=== PATIENT | male | born 1945 | race Caucasian/White ===

== ENCOUNTER 2020-10-24 22:55 | Inpatient (IN) | payer MEDICARE, SELFPAY ==
--- NOTE | ~2020-10-24 | CT_ITS ---
EXAMINATION: CT abdomen pelvis w con DATE: 10/25/2020 01:24 INDICATION: Abdomen pain TECHNIQUE: Computed tomography (CT) of the abdomen and pelvis was performed with 100 cc Omnipaque 350 intravenous contrast. The dose-length product was 777.05 mGy-cm. Automated exposure control and iter ative reconstruction technique were employed. COMPARISON: CT dated 11/30/2018. FINDINGS: There is a 5-6 mm right UVJ stone with right hydroureteronephrosis there is thickening of t he bladder wall with enlarged prostate gland. There is right lower lobe airspace consolidation, likely chronic atelectasis. Cardiomegaly. Large hia valentín hernia. Cystic lesion of the spleen measures 4.3 x 2.4 cm with peripheral calcifications, possibl y related to prior infection, trauma or infarction. Status post cholecystectomy with biliary dilatati on. There is pneumobilia. There is a possible stone in the common duct. There are low-density lesions in the kidneys, most likely benign cysts. Nonobstructive bowel gas clifton armond. Colonic diverticulosis without evidence for diverticulitis. There screws transfixing the left fe moral neck. Moderate lumbar spondylosis. IMPRESSION: 1. Right UVJ stone measuring 5-6 mm with mild hydronephrosis. 2: Bladder wall thickening with enlarged prostate gland. Cannot exclude cystitis. 3: Possible choledocholithiasis with biliary dilatation. Recommend GI consultation. 4: Large hiatal hernia. 5: Chronic right lower lobe atelectasis. 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 JOINTER OPERATOR IMPRESSION: 1. Right UVJ stone measuring 5-6 mm with mild hydronephrosis. 2: Bladder wall thickening with enlarged prostate gland. Cannot exclude cystit is. 3: Possible choledocholithiasis with biliary dilatation. Recommend GI consultat ion. 4: Large hiatal hernia. 5: Chronic right lower lobe atelectasis.
--- NOTE | ~2020-10-24 | XR_ITS ---
EXAMINATION: XR stent kub - surgery DATE: 10/25/2020 09:34 INDICATION: Right internal ureteral stent placement TECHNIQUE: Fluoroscopic images from a right internal ureteral stent placement are submitted for tavia rodriguez 49 seconds of fluoroscopy time. FINDINGS: There is a right double-J internal ureteral stent projecting in expected position, with proximal [place] loop at the level of the renal pelvis and distal loop in the pelvis within the bladder lumen. IMPRESSION: 1. Right internal ureteral stent placement. Please refer to real-time procedural findings for armando ls. 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 TED CIRCUIT BOARD PANELS TRIMMER IMPRESSION: 1. Right internal ureteral stent placement. Please refer to real-time procedu ral findings for details.
--- NOTE | ~2020-10-24 | XR_ITS ---
EXAMINATION: XR ERCP DATE: 10/26/2020 11:43 INDICATION: Possible choledocholithiasis TECHNIQUE: Three intraoperative fluoroscopic images obtained during endoscopic retrograde cholangiopa ncreatography (ERCP) are submitted for review. Total fluoroscopic time was 61.5 seconds. COMPARISON: CT from 10/25/2020 FINDINGS: There is moderate dilatation of the common bile duct. A right internal ureteral stent is in expected position. Please refer to procedure note for full details. IMPRESSION: 1. Moderate dilatation of the common bile duct. Please refer to the ERCP procedure note for additiona l details. 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 ESTATE ACCOUNTANT IMPRESSION: 1. Moderate dilatation of the common bile duct. Please refer to the ERCP proced ure note for additional details.
[2020-10-24 22:59] VITALS: BP 161/89; PULSE 82; RESP 18; TEMP 35.9; O2SAT 100
--- NOTE | 2020-10-24 23:48 | ED.ABDPAIN ---
HPI - Abdominal Pain General Chief Complaint: Abdominal Pain Stated Complaint: wants to be checked for covid Time Seen by Provider: 10/24/20 23:24 History of Present Illness HPI narrative: Lower abdominal pain and diarrhea since about 1600. Feels like sharp pain. No radiation. He has never had this pain. He has not tried anything for his symptoms. No nausea, vomiting, fever, cough, SOB, CP. Related Data Home Medications Medication Instructions Recorded Confirmed docusate sodium 100 mg tablet 100 mg PO DAILY 10/15/19 hjvlllkvbjrr-Bo-tpub-minerals 18 tablet PO 10/15/19 mg-0.4 mg tablet omega-3 fatty acids 1,000 mg 1,000 mg PO DAILY 10/15/19 capsule omeprazole 40 mg capsule,delayed 40 mg PO BID 10/15/19 release Allergies Allergy/AdvReac Type Severity Reaction Status Date / Time No Known Allergies Allergy Unverified 10/15/19 13:28 Review of Systems Review of Systems: All systems reviewed & are unremarkable except as noted in HPI and below Constitutional: Constitutional: Denies fever(s) and Denies weakness ENT: Denies sore throat Cardiovascular: Cardiovascular: Denies chest pain Respiratory: Respiratory: Denies dyspnea Gastrointestinal: Gastrointestinal: Reports abdominal pain, Reports diarrhea, Denies nausea and Denies vomiting Genitourinary: Genitourinary: Denies dysuria Musculoskeletal: Musculoskeletal: Denies back pain Neurologic: Denies confusion, Denies numbness and Denies weakness [facility] Past Medical History Medical History Jacobo's esophagus with high grade dysplasia Benign essential hypertension Benign prostatic hyperplasia CKD (chronic kidney disease) stage 1, GFR 90 ml/min or greater Hx of iron deficiency Surgical History Surgical History H/O aortic valve replacement History of aortic valve replacement Hx of hernia repair Family History Family History Mother Family history of heart disease in male family member before age 55, Onset Age: 70 Social History Social History Smoking status: Never smoker Alcohol intake: current Exam Const: General: healthy appearing, no acute distress and alert Nutritional Appearance: well nourished Orientation/consciousness: patient oriented x3 HENMT: Head: normal to inspection Resp: Effort & Inspection: normal respiratory effort Auscultation: clear to auscultation bilaterally Cardio: Rate: regular rate Rhythm: regular rhythm GI: Inspection: non-distended GI Palp: Yes Soft to palpation and Yes Tenderness to palpation present (GI) (suprapubic) Skin: General skin exam: normal color Neuro: General: patient oriented x3, moves all extremities, no focal motor deficits and CN's II-XI intact bilaterally Speech: normal speech Gait exam (Neuro): Normal gait present Extrem: General: normal to inspection and no edema Psych: Appearance: grossly normal and well kempt Mental Status: mental status grossly normal Affect: normal affect Attitude: cooperative Course Vital Signs Vital signs: Vital Signs Temperature 35.9 C L 10/24/20 22:59 Pulse Rate 82 10/24/20 22:59 Respiratory Rate 18 10/24/20 22:59 Blood Pressure 161/89 H 10/24/20 22:59 Pulse Oximetry 100 10/24/20 22:59 Temperature 35.9 C L 10/24/20 22:59 Pulse Rate 82 10/24/20 22:59 Respiratory Rate 18 10/24/20 22:59 Blood Pressure 161/89 H 10/24/20 22:59 Pulse Oximetry 100 10/24/20 22:59 MDM - Abdominal Pain MDM Narrative Medical decision making narrative: UA concerning for UTI. CT show 6 mm UVJ stone and choledocholithiasis with stone in CBD. Urology and GI consulted. Differential Diagnosis Differential diagnosis: Likely acute appendicitis, calculus of kidney, constipation, diverticulitis, gastroenteritis, pancreati
[2020-10-24] MEDS: DICYCLOMINE HCL INJ 20 MG/2 ML VIAL IM (23:55)
[2020-10-24] MEDS: LOPERAMIDE HCL 2 MG CAPSULE 4 MG PO (23:55)
[2020-10-25] VITALS (15 sets, daily range): BP systolic 103–182; BP diastolic 51–78; PULSE 62–76; RESP 11–20; TEMP 36.6–37.2; O2SAT 90–100; BMI 25.6
[2020-10-25 00:08] LABS: Add Urine Microscopic? YES; Appearance Urine Clear (Clear); Bilirubin Urine Negative (Negative); Blood Urine 2+ (Negative); Color Urine Yellow (Yellow); Glucose Urine UA Negative (Negative); Ketones Urine Negative (Negative); Leukocyte Esterase Ur 1+ LEU/UL (Negative); Mucus Urine Rare /lpf; Nitrate Urine Negative (Negative); Protein Urine 2+ mg/dL (Negative); Specific Grav Ur 1.016 (1.001-1.035); Urobilinogen Urine Negative mg/dL (<2.0); WBC Urine 31-50 /hpf
[2020-10-25 00:41] LABS: Basophils Absolute Auto 0.1 K/mm3 (0.0-0.1); Basophils Percent Auto 0.5 % (0.2-1.2); Hemoglobin 10.9 g/dL (14.0-18.0); Immature Granulocyte Absolute 0.06 K/mm3 (0.00-0.031); Immature Granulocyte Percent A 0.4 % (0-0.5); Lymphocytes Absolute Auto 1.04 K/mm3 (0.9-3.2); Mean Corpuscular HGB Conc 30.3 g/dl (32-36); Mean Corpuscular Hemoglobin 21.8 pg (26-34); Mean Platelet Volume 10.5 fl (7.4-10.4); Monocytes Absolute Auto 0.8 K/mm3 (0.1-0.6); Neutrophils Percent Auto 87.1 % (45.5-73.1); Platelet Count Result 347 k/mm3 (150-375); Red Cell Distribution Width 20.2 % (11.5-14.5); White Blood Count 14.9 K/mm3 (4.5-10.0)
[2020-10-25 00:54] LABS: Alanine Aminotransferase 17 U/L (4-50); Albumin Level 4.2 g/dL (3.5-5.1); Alkaline Phosphatase 137 U/L (38-126); Anion Gap 10 mmol/L (8-16); Aspartate Amino Transferase 26 U/L (17-59); Blood Urea Nitrogen 29 mg/dL (9-20); Calcium 9.5 mg/dL (8.4-10.2); Carbon Dioxide 25 mmol/L (22-30); Chloride 104 mmol/L (98-107); Estimated Glomerular Filt Rate 39; Glucose 138 mg/dL (75-110); Lipase 112 U/L (23-300); Potassium 4.7 mmol/L (3.4-5.0); Sodium 139 mmol/L (137-145)
[2020-10-25] MEDS: MORPHINE SULFATE (*CRX) 2 MG/ML INJ IV PUSH (01:07)
[2020-10-25] MEDS: MORPHINE SULFATE (*CRX) 4 MG/ML INJ 2 MG IV PUSH ×2 (03:42→06:37)
[2020-10-25] MEDS: ONDANSETRON INJ 4 MG/2 ML VIAL IV PUSH (03:42)
[2020-10-25] MEDS: LACTATED RINGERS 1,000 ML 125 ML IV CONT (04:52)
--- NOTE | 2020-10-25 05:02 | PM.IMHP ---
H&P: HPI History of Present Illness Date/Time: 10/25/20 05:02 Chief complaint: Choledocolithiasis, UTI, Kidney Stone Narrative: This is a pleasant 75 year old male with known history of HTN, bioprosthetic aortic valve replacement, previous nephrolithiasis, BPH, and hyperlipidemia who presented to the hospital [facility] because he believed he might have COVID-19. He felt well until yesterday afternoon when he had diarrhea and diffues lower abdominal pain. Associated symptoms included nausea. He denies any fever, chills, cough, shortness of breath, chest pain, palpitations, dysuria, hematuria, urinary frequency, or rectal bleeding. The patient was evaluated in the ER and found to have acute renal failure on routine labs as well as a grossly abnormal urinalysis. CT abd/pelvis demonstrated a urolithiasis as well as a CBD stone. ER provider has consulted both Urology and Gastroenterology who will evaluate the patient in the morning. He has been started on wide spectrum antibiotics and give IV fluids. Currently his pain is well controlled w/ IV morphine. He has no other complaints. Review of Systems Review of Systems: All systems reviewed & are unremarkable except as noted in HPI and below PMFSH Past Medical History Medical History Jacobo's esophagus with high grade dysplasia Benign essential hypertension Benign prostatic hyperplasia CKD (chronic kidney disease) stage 1, GFR 90 ml/min or greater Hx of iron deficiency Overweight Surgical History Surgical History H/O aortic valve replacement History of aortic valve replacement Hx of hernia repair Family History Family History Mother Family history of heart disease in male family member before age 55, Onset Age: 70 Social History Social History Smoking status: Never smoker Alcohol intake: current Drinks per week: 1 Substance use: never Substance use type: does not use Meds Home Medications and Allergies Home Medications Medication Instructions Recorded Confirmed Type docusate sodium 100 mg tablet 100 mg PO DAILY 10/15/19 10/25/20 History sthfmndmgnsr-Lk-tmqg-minerals 18 1 tablet PO DAILY 10/15/19 10/25/20 History mg-0.4 mg tablet omega-3 fatty acids 1,000 mg 1,000 mg PO DAILY 10/15/19 10/25/20 History capsule omeprazole 40 mg capsule,delayed 40 mg PO BID 10/15/19 10/25/20 History release finasteride 5 mg tablet 5 mg PO DAILY #90 tablet 06/15/20 10/25/20 Rx metoprolol tartrate 25 mg tablet 25 mg PO BID #180 tablet 06/26/20 10/25/20 Rx atorvastatin 40 mg tablet 40 mg PO DAILY #90 tablet 08/14/20 10/25/20 Rx citalopram 20 mg PO DAILY 10/25/20 10/25/20 History Allergies Allergy/AdvReac Type Severity Reaction Status Date / Time No Known Allergies Allergy Verified 10/25/20 04:48 Vital Signs Vital Signs - 24 hr 10/24/20 22:59 10/25/20 04:12 Temperature 35.9 C L 36.6 C Pulse Rate 82 72 Respiratory Rate 18 20 Blood Pressure 161/89 H 182/74 H Pulse Oximetry 100 98 Exam Const: General: cooperative, no acute distress, alert and awake Nutritional Appearance: well nourished Orientation/consciousness: patient oriented x3 HENMT: Head: normal to inspection General nose exam: Normal external nose present Face and sinus: normal facial exam Mouth: Yes Normal oral and palatal mucosa present and Yes oropharynx normal Eyes: Pupils: Equal, round and reactive pupils present EOM: EOMs intact bilaterally Neck: Neck: supple and no JVD Thyroid: thyroid normal Lymphatic: lymphadenopathy not noted Resp: Effort & Inspection: normal respiratory effort Auscultation: clear to auscultation bilaterally Cardio: Rate: regular rate Rhythm: regular rhythm Heart sounds: Clicking heart sound present GI: Inspection: normal to inspecti
--- NOTE | 2020-10-25 05:43 | ADMGEN ---
This patient, Gerry Bains, was admitted to Medical Room 248-01 on 10/25/2020 @0350. Patient/family oriented to hospital policies and general routines including ID bracelet, bed and alarms, visiting hours, pain management, procedures, bathroom and other care routines, personal items, smoking policy, room service/diet, and visiting hours. Information on how to activate the Rapid Response Team has been discussed. Patient/Family are encouraged to report perceived risks to care and to ask questions if they do not understand what they are told or what they should do.
[2020-10-25] MEDS: hydrALAZINE HCL 20 MG/ML VIAL 10 MG IV PUSH (06:35)
--- NOTE | 2020-10-25 07:12 | WPDANESEPP ---
Anes - Eval Pre Procedure Procedure: Cystoscopy Date/Time: 10/25/20 07:12 Surgeon: Lina Preop Diagnosis: uvj stone Pre Op Diagnosis: Choledocolithiasis, UTI, Kidney Stone Patient Data Age: 75 Gender: M Height: 1.88 m Weight: 90.6 kg Last Vital Signs Temp 36.6 C 10/25/20 05:18 Pulse 72 10/25/20 05:18 Resp 20 10/25/20 05:18 BP 182/74 H 10/25/20 05:18 Pulse Ox 98 10/25/20 05:18 Allergies Allergy/AdvReac Type Severity Reaction Status Date / Time No Known Allergies Allergy Verified 10/25/20 04:48 Home Medications Medication Instructions Recorded Confirmed Type docusate sodium 100 mg tablet 100 mg PO DAILY 10/15/19 10/25/20 History etiaiqpnzfyc-Ya-mfdp-minerals 18 1 tablet PO DAILY 10/15/19 10/25/20 History mg-0.4 mg tablet omega-3 fatty acids 1,000 mg 1,000 mg PO DAILY 10/15/19 10/25/20 History capsule omeprazole 40 mg capsule,delayed 40 mg PO BID 10/15/19 10/25/20 History release finasteride 5 mg tablet 5 mg PO DAILY #90 tablet 06/15/20 10/25/20 Rx metoprolol tartrate 25 mg tablet 25 mg PO BID #180 tablet 06/26/20 10/25/20 Rx atorvastatin 40 mg tablet 40 mg PO DAILY #90 tablet 08/14/20 10/25/20 Rx citalopram 20 mg PO DAILY 10/25/20 10/25/20 History Laboratory Tests 10/24/20 10/25/20 10/25/20 23:59 00:24 00:24 WBC 14.9 K/mm3 H K/mm3 (4.5-10.0) RBC 5.00 M/mm3 M/mm3 (4.6-6.20) Hgb 10.9 g/dL L g/dL (14.0-18.0) Hct 36.0 % L % (42.0-52.0) MCV 72.0 fl L fl (80-100) MCH 21.8 pg L pg (26-34) MCHC 30.3 g/dl L g/dl (32-36) RDW 20.2 % H % (11.5-14.5) Plt Count 347 k/mm3 k/mm3 (150-375) MPV 10.5 fl H fl (7.4-10.4) Immature Gran % (Auto) 0.4 % % (0-0.5) Neut % (Auto) 87.1 % H % (45.5-73.1) Lymph % (Auto) 7.0 % L % (18.3-44.2) [place] % (Auto) 5.0 % % (2.6-8.5) Eos % (Auto) 0.0 % % (0-4.4) Baso % (Auto) 0.5 % % (0.2-1.2) Lymph # (Auto) 1.04 K/mm3 K/mm3 (0.9-3.2) [place] # (Auto) 0.8 K/mm3 H K/mm3 (0.1-0.6) Eos # (Auto) 0.0 K/mm3 K/mm3 (0-0.3) Baso # (Auto) 0.1 K/mm3 K/mm3 (0.0-0.1) Abs Immat Gran (auto) 0.06 K/mm3 H K/mm3 (0.00-0.031) Absolute Neuts (auto) 13.0 K/mm3 H K/mm3 (1.3-6.7) Absolute Nucleated RBC 0.0 K/mm3 K/mm3 (0.0-0.012) Nucleated RBC % 0.0 % % (0.0-0.2) Sodium 139 mmol/L mmol/L (137-145) Potassium 4.7 mmol/L mmol/L (3.4-5.0) Chloride 104 mmol/L mmol/L (98-107) Carbon Dioxide 25 mmol/L mmol/L (22-30) Anion Gap 10 mmol/L mmol/L (8-16) BUN 29 mg/dL H mg/dL (9-20) Creatinine 1.70 mg/dL H mg/dL (0.7-1.3) Estim Creat Clear Calc Not Reportable Estimated GFR 39 L (59 - ) Glucose 138 mg/dL H mg/dL (75-110) Calcium 9.5 mg/dL mg/dL (8.4-10.2) Total Bilirubin 1.0 mg/dL mg/dL (0.2-1.3) AST 26 U/L U/L (17-59) ALT 17 U/L U/L (4-50) Alkaline Phosphatase 137 U/L H U/L (38-126) Total Protein 8.0 g/dL g/dL (6.3-8.2) Albumin 4.2 g/dL g/dL (3.5-5.1) Lipase 112 U/L U/L (23-300) Urine Color Yellow (Yellow) Urine Appearance Clear (Clear) Urine pH 5.0 (5.0-9.0) Ur Specific Wyatt 1.016 (1.001-1.035) Urine Protein 2+ mg/dL H mg/dL (Negative) Urine Glucose (UA) Negative mg/dL mg/dL (Negative) Urine Ketones Negative mg/dL mg/dL (Negative) Ur Blood (Man) 2+ H (Negative) Urine Nitrate Negative (Negative) Urine Bilirubin Negative (Negative) Urine Urobilinogen Negative mg/dL mg/dL (<2.0) Leukocyte Esterase Rfl 1+ NICK/UL H NICK/UL (Negative) Urine RBC 6-10 /hpf H /hpf
--- NOTE | 2020-10-25 08:11 | WPDURCON ---
Assessment and Plan Assessment and plan (1) Ureteral calculus, right: Code(s): N20.1 - Calculus of ureter Status: Acute Assessment and Plan: 75 yo male with elevated Cr, distal right ureter stone with hydronephrosis #1 ureter stone plan on cystoscopy with RPG, stent placement possible URS with laser lithotripsy and stone manipulation given it is right at UVJ. the risks, benefits, alternatives, nature of procedure and complications were reviewed. Risks including but not limited to bleeding, infection, inability to treat stone, need for multiple procedures, scar tissue formation, damage to the urinary tract, the side effects and temporary nature of the stent were emphasized including irritative voiding symptoms, pain, and hematuria. pt understands stents are temporary and need removal. In addition anesthesia and positioning complications were reviewed, risk of FL, stroke, DVT, PE, disability and other unforeseen complications were reviewed , pt verbalized understanding,,all ? answered to pt satisfaction in layman's terms. Urology Consult Note HPI Date Seen: 10/25/20 Requesting Physician: Tacos Gonzalez MD Primary Care Provider: Srikanth Abbasi DO Consult Narrative Narrative: Gerry Bains is a 75 year old male with significant pmhx of kidney stones, and artificial heart valve who presented to the ED with diarrhea and abdominal pain. he denies any hematuria, dysuria, fever or chills. Pain is lower , crampy and diffuse. Pain improved with IV narcotics. No recent illnesses. he has had prior ESWL and usually sees Dr Hercules. Pain began yesterday acutely, it is not colicky. He had a CT A/P with IV contrast which shows a distal 6 mm stone with hydro. Review of Systems Review of Systems: All systems reviewed & are unremarkable except as noted in HPI and below Constitutional: Constitutional: Denies anorexia, Denies body ache(s), Denies chills, Denies fever(s) and Denies lethargy Eyes: Eyes: Reports as per HPI and Denies change in vision ENT: Reports system reviewed and no additional complaints, except as documented, Denies headache(s) and Denies nasal discharge Cardiovascular: Cardiovascular: Reports as per HPI and Reports no additional cardiovascular complaints Respiratory: Respiratory: Reports as per HPI, Reports no additional respiratory complaints and Reports no additional respiratory complaints Gastrointestinal: Gastrointestinal: Reports abdominal pain, Reports diarrhea and Denies vomiting Genitourinary: Genitourinary: Reports no additional male genitourinary complaints, Reports as per HPI, Denies dysuria and Denies flank pain Musculoskeletal: Musculoskeletal: Reports no additional musculoskeletal complaints, Reports as per HPI, Denies back pain and Denies arthralgias Integumentary/Breasts: Skin/Breast: Reports system reviewed and no additional complaints, except as docu and Denies change in pigmentation Neurologic: Reports system reviewed and no additional complaints, except as documented, Reports as per HPI, Denies abnormal gait and Denies focal weakness Psychiatric: Psychiatric: Reports no additional psychiatric complaints Endocrine: Endocrine: Reports no additional endocrine complaints Hematologic/Lymphatic: Hematologic/Lymphatic: Reports no additional hematologic/lymphatic complaints and Denies easy bruising Allergic/Immunologic: Allergic/Immunologic: Reports no additional allergic/immunologic complaints PMFSH Past Medical History Medical History (Updated 10/25/20 @ 07:15 by Ellen Esquivel CRNA) Jacobo's esophagus with high grade dysplasia Benign essential hypertension Benign prostatic hyperplasia CKD (chronic kidney disease) stage 1, GFR 90 ml/min or greater Hx of iron deficiency Overweight Surgical History Surgical History H/O aortic valve replacement History of aortic valve replacement Hx of hernia repair Family History Fam
[2020-10-25 08:21] LABS: Basophils Absolute Auto 0.1 K/mm3 (0.0-0.1); Basophils Percent Auto 0.3 % (0.2-1.2); Eosinophils Percent Auto 0.1 % (0-4.4); Hematocrit 35.3 % (42.0-52.0); Hemoglobin 10.7 g/dL (14.0-18.0); Immature Granulocyte Absolute 0.06 K/mm3 (0.00-0.031); Immature Granulocyte Percent A 0.4 % (0-0.5); Lymphocytes Absolute Auto 2.04 K/mm3 (0.9-3.2); Lymphocytes Percent Auto 12.9 % (18.3-44.2); Mean Corpuscular HGB Conc 30.3 g/dl (32-36); Mean Corpuscular Hemoglobin 21.3 pg (26-34); Mean Corpuscular Volume 70.3 fl (80-100); Mean Platelet Volume 9.7 fl (7.4-10.4); Monocytes Absolute Auto 1.3 K/mm3 (0.1-0.6); Monocytes Percent Auto 8.5 % (2.6-8.5); Neutrophils Absolute Auto 12.3 K/mm3 (1.3-6.7); Neutrophils Percent Auto 77.8 % (45.5-73.1); Platelet Count Result 352 k/mm3 (150-375); Red Blood Count 5.02 M/mm3 (4.6-6.20); Red Cell Distribution Width 20.2 % (11.5-14.5); White Blood Count 15.8 K/mm3 (4.5-10.0)
[2020-10-25 08:30] LABS: Anion Gap 6 mmol/L (8-16); Blood Urea Nitrogen 27 mg/dL (9-20); Calcium 9.4 mg/dL (8.4-10.2); Carbon Dioxide 28 mmol/L (22-30); Chloride 104 mmol/L (98-107); Estimated CRCL calculation 39 ml/min; Estimated Glomerular Filt Rate 39; Glucose 106 mg/dL (75-110); Magnesium 1.7 mg/dL (1.6-2.3); Potassium 4.4 mmol/L (3.4-5.0); Sodium 138 mmol/L (137-145)
[2020-10-25] MEDS: METOPROLOL TARTRATE 25 MG TABLET PO ×2 (08:35→23:09)
--- NOTE | 2020-10-25 08:47 | WPDANESEFPP ---
Anes - Eval Final PreProcedure Day of Procedure 10/25/20 08:47 Patient weight: normal Heart: regular rate and rhythm and murmur Lungs: clear to auscultation Airway: Mallampati scale class II Neurological: other (alert) Last oral intake: >/= 8 hours ASA classification: III Emergent: yes Anesthetic plan: proceed Anesthesia type and monitoring: general LMA and standard monitoring Informed Consent: The patient's anesthetic plan and its attendant risks and benefits were discussed with the patient/family/POA. Questions were solicited and answers provided to the satisfaction of the patient/family/POA.
--- NOTE | 2020-10-25 08:49 | PC.NURSE ---
Patient transported to surgery at 0845
--- NOTE | 2020-10-25 09:24 | PM.PROC ---
Procedure Note - Detailed Date of procedure: 10/25/20 Pre-op diagnosis: Choledocolithiasis, UTI, Kidney Stone Surgeon: David Pace MD Preoperative Diagnosis: right ureter stone, hydronephrosis Post operative diagnosis: same Procedure: cystoscopy right ureteroscopy with holmium laser lithotripsy, stone manipulation with basket extraction of stone fragments,right ureter stent placement Implants: right 6 Fr variable length stent Specimens: Stone for analysis, right renal pelvis urine for culture Description of procedure: Pt was brought back to the operating room, he received general anesthesia via LMA. he was prepped in standard fashion in the dorsal lithotomy position with Betadine scrub to the genitalia. Care was taken to pad all extremities, care was taken to not hyper flex or hyperextend any extremity. SCD's were on for DVT prophylaxis. He is on Zosyn. After appropriate time out and patient identifiers were use, 22 Fr cystoscope was inserted into the bladder , prostate had lateral lobe hyperplasia and small middle lobe. No tumors, lesions, masses or stones seen. He had bilateral orthotopic ureteral orifices, stone seen on fluoro at UVJ. 5 Fr Angiocath and glide wire were placed past the stone. He had delayed nephrogram from CT. Bentson wire was placed. urine was clear from renal pelvis and was sent for culture. 8/10 dilator was used over Bentson wire to dilate the UVJ. 7 Fr semirigid ureteroscope was inserted up to the level of t he stone, I attempted to remove it but it would not pass the UVJ. Stone was then ablated with the holmium laser into small fragments with at 270 micron fiber at setting of 0.8 and 5 Hz. Stones were removed with escape basket and sent for stone analysis. 6 Fr variable length stent was placed over Bentson wire, good curl was seen fluoroscopically in the kidney and both fluoroscopically and endoscopically in the bladder. The bladder was drained all instruments and wires removed. Patient was awoken and transferred to recovery in stable condition. No immediate complications, no family to speak with.
[2020-10-25] MEDS: LACTATED RINGERS 1,000 ML 30 ML IV CONT (09:29)
--- NOTE | 2020-10-25 09:53 | SUR.PHASEI ---
[id number] sbar faxed floor notified
[2020-10-25] MEDS: OMEGA 3 POLYUNSAT FATTY ACIDS 1 GM CAP PO (10:40)
[2020-10-25] MEDS: PANTOPRAZOLE 40 MG TABLET PO (10:40)
[2020-10-25] MEDS: FINASTERIDE 5 MG TABLET PO (10:41)
[2020-10-25] MEDS: THERAPEUTIC MULTIVITAMINS/MINERALS TAB (*BKC) 1 TABLET PO (10:41)
[2020-10-25] MEDS: CITALOPRAM HYDROBROMIDE 20 MG TABLET PO (10:41)
[2020-10-25] MEDS: ATORVASTATIN 40 MG TABLET PO (10:41)
--- NOTE | 2020-10-25 11:33 | WPDGIPROGNO ---
Progress Note: A&P Additional Plan GI Dmitry for Tab Mccarthy GERD and Jacobo's with HGD - s/p RFA - PPI BID - EGD with surveilance bx per Dr. Tab Carroll. Personal h/o colon polyps 5 years ago: consider repeat colon by Dr. white as OP C. Abdominal pain, N: - Likely r/t kidney stone - r/w cysto D. Abnormal imaging-digestive: HH; observe. E. Abnormal imaging-biliary: - Concern for CBD stone on CT - Favor ERCP when stable (preop ABx for heart valve) F. LILIANA with microcytosis: - No active blood loss - Please order B12, folate, ferritin, iron panel, TTg, Epo level; Hgb electrophoresis Further recs per Dr. White. Full note dictated. Theodore [facility] [phone] #[id number] Subjective Date/time seen: 10/25/20 11:33 Objective Data Vital Signs Vital Signs: Vital Signs - 24 hr 10/24/20 22:59 10/25/20 04:12 10/25/20 05:18 Temperature 35.9 C L 36.6 C 36.6 C Pulse Rate 82 72 72 Respiratory Rate 18 20 20 Blood Pressure 161/89 H 182/74 H 182/74 H Pulse Oximetry 100 98 98 10/25/20 08:35 10/25/20 09:30 10/25/20 09:45 Temperature 36.8 C Pulse Rate 76 62 63 Respiratory Rate 11 L 15 Blood Pressure 129/64 119/63 Pulse Oximetry 100 96 10/25/20 10:00 10/25/20 10:15 Temperature Pulse Rate 63 63 Respiratory Rate 16 16 Blood Pressure 116/65 118/53 L Pulse Oximetry 95 95 Intake/Output Intake/Output: Intake & Output 10/22/20 10/23/20 10/24/20 10/25/20 23:59 23:59 23:59 23:59 Intake Total 700 Output Total 225 Balance 475 Meds/Results Medications: Active Medications Generic Name Dose Route Start Last Admin Trade Name Freq PRN Reason Stop Dose Admin Acetaminophen 650 mg 10/25/20 05:00 Acetaminophen 325 Mg Tablet PO Q4H PRN Mild Pain (1-3) or Fever Atorvastatin Calcium 40 mg 10/25/20 09:00 10/25/20 10:41 Atorvastatin 40 Mg Tablet PO 40 mg DAILY AUDREY Administration Citalopram Hydrobromide 20 mg 10/25/20 09:00 10/25/20 10:41 Citalopram Hydrobromide 20 Mg Tablet PO 20 mg DAILY AUDREY Administration Finasteride 5 mg 10/25/20 09:00 10/25/20 10:41 Finasteride 5 Mg Tablet PO 5 mg DAILY AUDREY Administration Fish Oil 1 gm 10/25/20 09:00 10/25/20 10:40 [place] 3 Polyunsat Fatty Acids 1 Gm Cap PO 1 gm DAILY AUDREY Administration Hydralazine HCl 10 mg 10/25/20 04:57 10/25/20 06:35 Hydralazine Hcl 20 Mg/Ml Vial IV PUSH 10/27/20 07:00 10 mg Q8H PRN Administration see comment Piperacillin/Tazobactam/Dextrose 3.375 gm in 50 mls @ 100 mls/hr 10/25/20 10:00 10/25/20 11:15 Zosyn 3.375 Gm/D5w 50ml Pm IVPB Infused Q6H AUDREY Infusion Lactated Ringer's 1,000 mls @ 125 mls/hr 10/25/20 03:05 10/25/20 11:25 Lr - Lactated Ringers Iv IV CONT Not Given .Q8H AUDREY Metoprolol Tartrate 25 mg 10/25/20 09:00 10/25/20 08:35 Metoprolol Tartrate 25 Mg Tablet PO 25 mg Q12HR AUDREY Administration Morphine Sulfate 2 mg 10/25/20 07:31 Morphine Sulfate (*Crx) 4 Mg/Ml Inj IV PUSH Q4H PRN Pain Rated 7-10 Multivitamins/Calcium 1 tablet 10/25/20 09:00 10/25/20 10:41 Therapeutic Multivitamins/Minerals Tab (*Bkc) PO 1 tablet DAILY AUDREY Administration Ondansetron HCl 4 mg 10/25/20 03:01 10/25/20 03:42 Ondansetron Inj 4 Mg/2 Ml Vial IV PUSH 4 mg Q4H PRN Administration Nausea Pantoprazole Sodium 40 mg 10/25/20 09:00 10/25/20 10:40 Pantoprazole 40 Mg Tablet PO 40 mg QAM AUDREY Administration Radiology Results: ITS Impressions Abdomen/Pelvis CT 10/25/20 08:31 IMPRESSION: 1. Right UVJ stone measuring 5-6 mm with mild hydronephrosis. 2: Bladder wall thickening with enlarged prostate gland. Cannot exclude cystitis. 3: Possible choledocholithiasis with biliary dilatation. Recommend GI consultation. 4: Large hiatal hernia. 5: Chronic right lower lobe atelectasis. Ureter Stent X-Ray 10/25/20 09:39 IMPRESSION: 1. Right internal ureteral stent placement. Please refer to real-time proce
--- NOTE | 2020-10-25 13:26 | PM.IMPN ---
Progress Note: A&P Assessment and Plan (1) Ureteral calculus, right: Code(s): N20.1 - Calculus of ureter Status: Acute Assessment and Plan: Patient presented with abdominal pain; CT demonstrated 6mm at right UVJ with mild hydronephrosis. Urology following - appreciate recommendations. Underwent right ureteral stent placement, laser lithotripsy and extraction of stone fragments this morning by Dr. Pace. (2) Complicated UTI (urinary tract infection): Code(s): N39.0 - Urinary tract infection, site not specified Status: Acute Assessment and Plan: Urinalysis grossly abnormal. Continue empiric IV Zosyn (day 1), urine culture pending. (3) Acute renal failure: Qualifiers: Acute renal failure type: unspecified Qualified Code(s): N17.9 - Acute kidney failure, unspecified Code(s): N17.9 - Acute kidney failure, unspecified Status: Acute Assessment and Plan: Suspect secondary to above. Continue IV hydration, slowed rate. Avoid nephrotoxic agents. Monitor renal function and urine output. (4) Choledocholithiasis: Code(s): K80.50 - Calculus of bile duct without cholangitis or cholecystitis without obstruction Status: Acute Assessment and Plan: Incidentally found on CT abd/pelvis. Gastroenterology has been consulted by ER provider. Appreciate GI recommendations. Will allow patient to have clear liquid diet for the rest of today, NPO at midnight in case GI wants possible ERCP tomorrow. Reassess in AM. (5) Leukocytosis: Qualifiers: Leukocytosis type: unspecified Qualified Code(s): D72.829 - Elevated white blood cell count, unspecified Code(s): D72.829 - Elevated white blood cell count, unspecified Status: Acute Assessment and Plan: Suspect secondary to acute UTI. Continue antibiotics as above and monitor CBCd. (6) Benign essential hypertension: Code(s): I10 - Essential (primary) hypertension Status: Chronic Assessment and Plan: Reasonably controlled maintained on his home metoprolol. Monitor BP. (7) Benign prostatic hyperplasia: Qualifiers: Lower urinary tract symptom presence: unspecified whether lower urinary tract symptoms present Qualified Code(s): N40.0 - Benign prostatic hyperplasia without lower urinary tract symptoms Code(s): N40.0 - Benign prostatic hyperplasia without lower urinary tract symptoms Status: Chronic Assessment and Plan: Continue finasteride. (8) History of aortic valve replacement: Code(s): Z95.2 - Presence of prosthetic heart valve Status: Chronic Subjective Date/time seen: 10/25/20 1245 Interval history: Mr. Bains is a pleasant 75yo M admitted for kidney stone, UTI, and also choledocholithiasis. He is seen in follow up this afternoon after returning from ureteral stent placement this morning. He is in good spirits and feels well, notes his abdominal pain is improved. He denies chest pain or shortness of breath. He has not yet eaten but denies nausea or vomiting. Review of Systems Review of Systems: All systems reviewed & are unremarkable except as noted in HPI and below Exam Narrative: Exam Narrative: General: Male resting comfortably supine in bed in no acute distress. HEENT: Normocephalic, EOMI, oral mucosa moist. Cardiovascular: Rate and rhythm are regular. Soft systolic murmur heard loudest over left sternal border. Respiratory: Lungs clear to auscultation bilaterally. Respirations even and non-labored. Tolerating room air. Abdomen: Soft, non-distended, bowel sounds present. Mild tenderness to palpation of
--- NOTE | 2020-10-25 16:05 | CONS_ITS ---
DATE OF CONSULTATION: 10/25/2020 HISTORY OF PRESENT ILLNESS: This is a 75-year-old male with history of hypertension, bioprosthetic aortic valve replacement, kidney stones, chronic kidney disease, iron deficiency anemia, BPH, hypertension, hyperlipidemia, Jacobo esophagus with high-grade dysplasia, status post treatment with radiofrequency ablation in the past, hernia repair, who I am now asked to provide GI evaluation at the request of the hospitalist service for abdominal pain and abnormal imaging of the biliary system. PRIMARY CARE PROVIDER: Dr. Srikanth Abbasi. PRIMARY HEALTH PROMOTER: Gerry Martinez MD, who is now retired. Patient presented with bilateral lower quadrant abdominal pain beginning at 4 p.m. yesterday. It was associated with mild nausea and no vomiting. It is now resolved after cystoscopy. The patient has chronic heartburn relieved with omeprazole. He otherwise denies trouble swallowing, loss of appetite or weight, diarrhea, constipation, hematochezia, melena, fever, jaundice, scleral icterus, dark urine, light stools, itching, hot or cold intolerance, chest pain, shortness of breath at rest, hematuria, dysuria, new cough or visual changes, easy bruising, tingling of the skin, bone pain, or tremors. ENDOCARDITIS RISK FACTORS: Positive for bioprosthetic valve. No endocarditis, bleeding disorder, joint replacement. ALLERGIES: NO KNOWN DRUG ALLERGIES. MEDICATIONS: Include Colace, multivitamin, fish oil, omeprazole 40 mg twice a day, finasteride, metoprolol, atorvastatin, citalopram. SOCIAL HISTORY: Nonsmoker, nondrinker. FAMILY HISTORY: Negative for GI malignancy. The patient states his last colonoscopy was approximately 5 years ago with colon polyps. PHYSICAL EXAM: GENERAL: Well-developed, well-nourished male, lying in bed, no apparent distress, status post cystoscopy. He has no lower extremity edema, jaundice, spider angioma, or palmar erythema. HEENT: Skull is normocephalic, atraumatic. Pupils nonicteric. Oropharynx clear. NECK: Supple without thyromegaly. LUNGS: Clear to auscultation. HEART: Rate and rhythm regular. S1, S2 normal. ABDOMEN: Normoactive bowel sounds. Soft, nontender, nonrigid, nondistended without hepatosplenomegaly or masses. RECTAL: Deferred. NEURO: Conscious, alert and oriented x3. LABORATORY DATA: Today, hemoglobin 11, hematocrit 35, white count is 16, MCV 70, platelets are 352. Creatinine 1.7, T bilirubin 1, alkaline phosphatase 137, AST 26, ALT is 17. On 10/24, CT scan of the abdomen and pelvis shows right UVJ stone. Bladder wall thickening and probable CBD stone with biliary dilation. Hiatal hernia. ASSESSMENT/PLAN: 1. Gastroesophageal reflux disease and Jacobo's with high-grade dysplasia. We will continue omeprazole twice daily and patient will follow up with Dr. Quinton Barth for consideration of surveillance upper endoscopy with biopsy. 2. Iron deficiency anemia in patient with renal disease. We will check labs including B12, folate, ferritin, reticulocyte count, and iron panel. Would also check erythropoietin level. 3. Abnormal imaging digestive with hiatal hernia. We will observe. 4. Personal history of colon polyps. Consider repeat colonoscopy when stable per Dr. Quinton Barth. 5. Abdominal pain and nausea, most likely due to kidney stone, now resolved with cystoscopy. We will observe. 6. Abnormal imaging, biliary and abnormal alkaline phosphatase, possibly due to common duct stone. CT suggests common duct stone. Could proceed with either ERCP or MRCP. Given the pretest probability, I would be concerned about false-negative on MRCP and would generally lean to ERCP prior to discharge. Continue antibiotics. The patient will need preprocedure antibiotics given his hear
[2020-10-25] MEDS: LACTATED RINGERS 1,000 ML 75 ML IV CONT (16:52)
[2020-10-26] VITALS (16 sets, daily range): BP systolic 109–169; BP diastolic 48–79; PULSE 62–73; RESP 14–24; TEMP 36.8–37.1; O2SAT 95–100
[2020-10-26 05:39] LABS: Basophils Absolute Auto 0.1 K/mm3 (0.0-0.1); Basophils Percent Auto 0.4 % (0.2-1.2); Eosinophils Percent Auto 0.2 % (0-4.4); Hemoglobin 9.5 g/dL (14.0-18.0); Immature Granulocyte Absolute 0.06 K/mm3 (0.00-0.031); Immature Granulocyte Percent A 0.4 % (0-0.5); Lymphocytes Absolute Auto 1.62 K/mm3 (0.9-3.2); Lymphocytes Percent Auto 12.1 % (18.3-44.2); Mean Corpuscular HGB Conc 30.6 g/dl (32-36); Mean Corpuscular Hemoglobin 21.8 pg (26-34); Mean Corpuscular Volume 71.3 fl (80-100); Monocytes Absolute Auto 1.1 K/mm3 (0.1-0.6); Monocytes Percent Auto 8.5 % (2.6-8.5); Neutrophils Absolute Auto 10.5 K/mm3 (1.3-6.7); Neutrophils Percent Auto 78.4 % (45.5-73.1); Platelet Count Result 296 k/mm3 (150-375); Red Blood Count 4.35 M/mm3 (4.6-6.20); Red Cell Distribution Width 19.7 % (11.5-14.5); White Blood Count 13.4 K/mm3 (4.5-10.0)
[2020-10-26 05:54] LABS: Anion Gap 4 mmol/L (8-16); Blood Urea Nitrogen 25 mg/dL (9-20); Calcium 9.1 mg/dL (8.4-10.2); Carbon Dioxide 32 mmol/L (22-30); Chloride 103 mmol/L (98-107); Estimated CRCL calculation 41 ml/min; Estimated Glomerular Filt Rate 42; Glucose 92 mg/dL (75-110); Magnesium 1.8 mg/dL (1.6-2.3); Sodium 139 mmol/L (137-145)
[2020-10-26 06:05] LABS: Iron 184 ug/dL (49-181)
[2020-10-26 06:15] LABS: Percent Iron Saturation 59 % (20-50)
--- NOTE | 2020-10-26 06:15 | WPDUROPN2 ---
Progress Note: A&P Assessment and Plan (1) Ureteral calculus, right: Code(s): N20.1 - Calculus of ureter Status: Acute Assessment and Plan: Comfortable/tolerating stent, leukocytosis and renal function slowly improving. Urine culture pending. GI study planned for today. Subjective Subjective Date/Time Seen: 10/26/20 06:15 Comfortable, no complaints Review of Systems Cardiovascular: Cardiovascular: Denies chest pain, Denies lightheadedness, Denies palpitations and Denies dyspnea Respiratory: Respiratory: Denies dyspnea Gastrointestinal: Gastrointestinal: Denies diarrhea, Denies nausea and Denies vomiting Genitourinary: Genitourinary: Denies hematuria and Denies dysuria Endocrine: Endocrine: Denies palpitations Exam Const: General: no acute distress Resp: Effort & Inspection: normal respiratory effort GI: Inspection: non-distended GI Palp: No abdominal tenderness and No Guarding due to palpation present (GI) Auscultation: normal bowel sounds Objective Data Vital Signs Vital Signs: Vital Signs - 24 hr 10/25/20 08:35 10/25/20 09:30 10/25/20 09:45 Temperature 98.2 F Pulse Rate 76 62 63 Respiratory Rate 11 L 15 Blood Pressure 129/64 119/63 Pulse Oximetry 100 96 10/25/20 10:00 10/25/20 10:15 10/25/20 10:30 Temperature 98.4 F Pulse Rate 63 63 64 Respiratory Rate 16 16 18 Blood Pressure 116/65 118/53 L 138/62 Pulse Oximetry 95 95 95 10/25/20 10:45 10/25/20 11:15 10/25/20 12:15 Temperature 98.5 F 98.9 F 98.6 F Pulse Rate 65 66 66 Respiratory Rate 18 18 18 Blood Pressure 120/51 L 141/57 H 145/67 H Pulse Oximetry 95 96 90 10/25/20 18:00 10/25/20 22:00 10/25/20 23:09 Temperature 98.3 F 98.5 F Pulse Rate 68 65 70 Respiratory Rate 18 20 Blood Pressure 103/78 126/61 Pulse Oximetry 94 97 10/26/20 02:00 10/26/20 05:51 Temperature 98.3 F 98.2 F Pulse Rate 62 62 Respiratory Rate 20 20 Blood Pressure 110/48 L 109/51 L Pulse Oximetry 98 98 Intake/Output Intake/Output: Intake & Output 12/04/20 12/05/20 12/06/20 12/07/20 23:59 23:59 23:59 23:59 Intake Total 1600 120 Output Total 675 200 Balance 925 -80 Meds/Results Medications: Active Medications Generic Name Dose Route Start Last Admin Trade Name Freq PRN Reason Stop Dose Admin Acetaminophen 650 mg 10/25/20 05:00 Acetaminophen 325 Mg Tablet PO Q4H PRN Mild Pain (1-3) or Fever Atorvastatin Calcium 40 mg 10/25/20 09:00 10/25/20 10:41 Atorvastatin 40 Mg Tablet PO 40 mg DAILY AUDREY Administration Citalopram Hydrobromide 20 mg 10/25/20 09:00 10/25/20 10:41 Citalopram Hydrobromide 20 Mg Tablet PO 20 mg DAILY AUDREY Administration Finasteride 5 mg 10/25/20 09:00 10/25/20 10:41 Finasteride 5 Mg Tablet PO 5 mg DAILY AUDREY Administration Fish Oil 1 gm 10/25/20 09:00 10/25/20 10:40 [place] 3 Polyunsat Fatty Acids 1 Gm Cap PO 1 gm DAILY AUDREY Administration Hydralazine HCl 10 mg 10/25/20 04:57 10/25/20 06:35 Hydralazine Hcl 20 Mg/Ml Vial IV PUSH 10/27/20 07:00 10 mg Q8H PRN Administration see comment Piperacillin/Tazobactam/Dextrose 3.375 gm in 50 mls @ 100 mls/hr 10/25/20 10:00 10/26/20 05:12 Zosyn 3.375 Gm/D5w 50ml Pm IVPB 100 mls/hr Q6H AUDREY Administration Lactated Ringer's 1,000 mls @ 75 mls/hr 10/25/20 03:05 10/25/20 16:52 Lr - Lactated Ringers Iv IV CONT 75 mls/hr .[id number] AUDREY Administration Metoprolol Tartrate 25 mg 10/25/20 09:00 10/25/20 23:09 Metoprolol Tartrate 25 Mg Tablet PO 25 mg Q12HR AUDREY Administration Morphine Sulfate 2 mg 10/25/20 07:31 Morphine Sulfate (*Crx) 4 Mg/Ml Inj IV PUSH Q4H PRN Pain Rated 7-10 Multivitamins/Calcium 1 tablet 10/25/20 09:00 10/25/20 10:41 Therapeutic Multivitamins/Minerals Tab (*Bkc) PO 1 tablet DAILY AUDREY Administration Ondansetron HCl 4 mg 10/25/20 03:01 10/25/20 03:42 Ondansetron Inj 4 Mg/2 Ml Vial IV PUSH
[2020-10-26 06:57] LABS: Folic Acid 10.4 ng/mL (2.76->20)
--- NOTE | 2020-10-26 08:03 | WPDANESEPPF ---
Anes - Initial Pre Proc Eval Procedure: Operation Date: 10/25/20 08:30 Proposed Procedures p Cystoscopy, Right Ureteral Stent Placement(Right) - David Pace MD s Possible Holmium Laser Procedure(Right) - David Pace MD Operation Date: 10/26/20 11:00 Proposed Procedures p Endoscopic Retro Cholangiopancreatogram - Quinton Barth MD Date/Time: 10/26/20 08:03 Surgeon: UBALDO Ortez Pre Op Diagnosis: Choledocolithiasis, UTI, Kidney Stone Patient Data Age: 75 Gender: M Height: 1.88 m Weight: 90.6 kg Last Vital Signs Temp 36.8 C 10/26/20 05:51 Pulse 62 10/26/20 05:51 Resp 20 10/26/20 05:51 BP 109/51 L 10/26/20 05:51 Pulse Ox 98 10/26/20 05:51 Allergies Allergy/AdvReac Type Severity Reaction Status Date / Time No Known Allergies Allergy Verified 10/26/20 10:13 Home Medications Medication Instructions Recorded Confirmed Type docusate sodium 100 mg tablet 100 mg PO DAILY 10/15/19 10/25/20 History veenukpygntf-Uy-ghnz-minerals 18 1 tablet PO DAILY 10/15/19 10/25/20 History mg-0.4 mg tablet omega-3 fatty acids 1,000 mg 1,000 mg PO DAILY 10/15/19 10/25/20 History capsule omeprazole 40 mg capsule,delayed 40 mg PO BID 10/15/19 10/25/20 History release finasteride 5 mg tablet 5 mg PO DAILY #90 tablet 06/15/20 10/25/20 Rx metoprolol tartrate 25 mg tablet 25 mg PO BID #180 tablet 06/26/20 10/25/20 Rx atorvastatin 40 mg tablet 40 mg PO DAILY #90 tablet 08/14/20 10/25/20 Rx citalopram 20 mg PO DAILY 10/25/20 10/25/20 History Laboratory Tests 10/25/20 10/25/20 10/26/20 08:12 08:12 05:13 WBC 15.8 K/mm3 H K/mm3 13.4 K/mm3 H K/mm3 (4.5-10.0) (4.5-10.0) RBC 5.02 M/mm3 M/mm3 4.35 M/mm3 L M/mm3 (4.6-6.20) (4.6-6.20) Hgb 10.7 g/dL L g/dL 9.5 g/dL L g/dL (14.0-18.0) (14.0-18.0) Hct 35.3 % L % 31.0 % L % (42.0-52.0) (42.0-52.0) MCV 70.3 fl L fl 71.3 fl L fl (80-100) (80-100) MCH 21.3 pg L pg 21.8 pg L pg (26-34) (26-34) MCHC 30.3 g/dl L g/dl 30.6 g/dl L g/dl (32-36) (32-36) RDW 20.2 % H % 19.7 % H % (11.5-14.5) (11.5-14.5) Plt Count 352 k/mm3 k/mm3 296 k/mm3 k/mm3 (150-375) (150-375) MPV 9.7 fl fl 10.0 fl fl (7.4-10.4) (7.4-10.4) Immature Gran % (Auto) 0.4 % % 0.4 % % (0-0.5) (0-0.5) Neut % (Auto) 77.8 % H % 78.4 % H % (45.5-73.1) (45.5-73.1) Lymph % (Auto) 12.9 % L % 12.1 % L % (18.3-44.2) (18.3-44.2) [place] % (Auto) 8.5 % % 8.5 % % (2.6-8.5) (2.6-8.5) Eos % (Auto) 0.1 % % 0.2 % % (0-4.4) (0-4.4) Baso % (Auto) 0.3 % % 0.4 % % (0.2-1.2) (0.2-1.2) Lymph # (Auto) 2.04 K/mm3 K/mm3 1.62 K/mm3 K/mm3 (0.9-3.2) (0.9-3.2) [place] # (Auto) 1.3 K/mm3 H K/mm3 1.1 K/mm3 H K/mm3 (0.1-0.6) (0.1-0.6) Eos # (Auto) 0.0 K/mm3 K/mm3 0.0 K/mm3 K/mm3 (0-0.3) (0-0.3) Baso # (Auto) 0.1 K/mm3 K/mm3 0.1 K/mm3 K/mm3 (0.0-0.1) (0.0-0.1) Abs Immat Gran (auto) 0.06 K/mm3 H K/mm3 0.06 K/mm3 H K/mm3 (0.00-0.031) (0.00-0.031) Absolute Neuts (auto) 12.3 K/mm3 H K/mm3 10.5 K/mm3 H K/mm3 (1.3-6.7) (1.3-6.7) Absolute Nucleated RBC 0.0 K/mm3 K/mm3 0.0 K/mm3 K/mm3 (0.0-0.012) (0.0-0.012) Nucleated RBC % 0.0 % % 0.0 % % (0.0-0.2) (0.0-0.2) Hemoglobin A % Hemoglobin A2 Quant Hemoglobin C % Hemoglobin E % Hemoglobin F Percent Hemoglobin S % Hemoglobinopathy Red Blood Count Hemoglobinopathy Hct Hemoglobinopathy Hgb Hemoglobinopathy MCV Hemoglobinopathy MCH Hemoglobinopathy RDW Hemoglobinopathy Interp Hemoglobin Other Hemoglobin Other 2 Sodium 138 mmol/L mmol/L (137-145) Potassium 4.4 mmol/L mmol/L (3.4-5.0) Chloride 104 mmol/L mmol/L (98
--- NOTE | 2020-10-26 09:20 | PM.IMPN ---
Progress Note: A&P Assessment and Plan (1) Ureteral calculus, right: Code(s): N20.1 - Calculus of ureter Status: Acute Assessment and Plan: Patient presented with abdominal pain; CT demonstrated 6mm at right UVJ with mild hydronephrosis. Urology following - appreciate recommendations. Underwent right ureteral stent placement, laser lithotripsy and extraction of stone fragments 10/[address] Pace. (2) Bacteriuria: Code(s): R82.71 - Bacteriuria Status: Acute Assessment and Plan: Suspect ureteral stone caused grossly abnormal UA. Continue empiric IV Zosyn (day 2) for now and appreciate urologic recommendations. Initial urine culture is negative; 2nd urine culture was sent during his procedure. (3) Acute renal failure: Qualifiers: Acute renal failure type: unspecified Qualified Code(s): N17.9 - Acute kidney failure, unspecified Code(s): N17.9 - Acute kidney failure, unspecified Status: Acute Assessment and Plan: Suspect secondary to above. Treated with IV hydration, will stop this evening and encourage oral intake. Avoid nephrotoxic agents. Monitor renal function and urine output. (4) Choledocholithiasis: Code(s): K80.50 - Calculus of bile duct without cholangitis or cholecystitis without obstruction Status: Ruled-out Assessment and Plan: On CT abdomen/pelvis is possible stone in the common bile duct with biliary dilatation. ERCP by Dr. Barth today demonstrated a periampullary diverticulum/polyp without any stones in the biliary ducts. Appreciate GI recommendations. Low-fat diet. (5) Leukocytosis: Qualifiers: Leukocytosis type: unspecified Qualified Code(s): D72.829 - Elevated white blood cell count, unspecified Code(s): D72.829 - Elevated white blood cell count, unspecified Status: Acute Assessment and Plan: Improving; Suspect secondary to acute UTI vs. Stress reaction from stone and procedure. Continue antibiotics as above and monitor CBC. (6) Benign essential hypertension: Code(s): I10 - Essential (primary) hypertension Status: Chronic Assessment and Plan: Blood pressures elevated. Increase his home metoprolol for this evening. Monitor BP. (7) Benign prostatic hyperplasia: Qualifiers: Lower urinary tract symptom presence: unspecified whether lower urinary tract symptoms present Qualified Code(s): N40.0 - Benign prostatic hyperplasia without lower urinary tract symptoms Code(s): N40.0 - Benign prostatic hyperplasia without lower urinary tract symptoms Status: Chronic Assessment and Plan: Continue finasteride. (8) Microcytic anemia: Code(s): D50.9 - Iron deficiency anemia, unspecified Status: Chronic Assessment and Plan: Hgb low but stable. Drop in Hgb may be in part due to dilution from IV fluids. Iron panel was within normal limits. Monitor CBC, transfuse PRN. (9) Chronic gastroesophageal reflux disease: Code(s): K21.9 - Gastro-esophageal reflux disease without esophagitis Status: Chronic Assessment and Plan: History of Jacobo's esophagus with high-grade dysplasia. Continue BID PPI, follow-up with Dr. Barth. Subjective Date/time seen: 10/26/20 0845 Interval history: Mr. Bains is a pleasant 75yo M admitted for kidney stone, acute renal failure and possible choledocholithiasis. He is feeling well this morning and notes his abdominal pain is improved. Denies nausea or vomiting. Hungry since he is NPO. Denies chest p
--- NOTE | 2020-10-26 10:12 | PC.NURSE ---
10/26/20 1000 To GI lab per stretcher.
[2020-10-26] MEDS: LACTATED RINGERS 1,000 ML 150 ML IV CONT (10:20)
[2020-10-26] MEDS: GENTAMICIN 80MG/SOD CHL 50 ML 80 MG/50 ML BAG 100 MG IVPB (10:21)
[2020-10-26] MEDS: AMPICILLIN 2 GM/NS 100 ML 2 GM/100 ML BAG IVPB (10:54)
--- NOTE | 2020-10-26 13:10 | PC.NURSE ---
Return from GI lab per karla 10/26/20 [id number]
[2020-10-26] MEDS: THERAPEUTIC MULTIVITAMINS/MINERALS TAB (*BKC) 1 TABLET PO (13:14)
[2020-10-26] MEDS: CITALOPRAM HYDROBROMIDE 20 MG TABLET PO (13:14)
[2020-10-26] MEDS: OMEGA 3 POLYUNSAT FATTY ACIDS 1 GM CAP PO (13:14)
[2020-10-26] MEDS: ATORVASTATIN 40 MG TABLET PO (13:15)
[2020-10-26] MEDS: FINASTERIDE 5 MG TABLET PO (13:15)
[2020-10-26] MEDS: PANTOPRAZOLE 40 MG TABLET PO (13:15)
[2020-10-26] MEDS: METOPROLOL TARTRATE 50 MG TAB PO (20:21)
[2020-10-27 02:00] VITALS: BP 98/55; PULSE 65; RESP 16; TEMP 36.8; O2SAT 96
[2020-10-27 05:31] LABS: Basophils Absolute Auto 0.1 K/mm3 (0.0-0.1); Basophils Percent Auto 0.7 % (0.2-1.2); Eosinophils Absolute Auto 0.2 K/mm3 (0-0.3); Eosinophils Percent Auto 1.9 % (0-4.4); Hematocrit 32.2 % (42.0-52.0); Hemoglobin 10.1 g/dL (14.0-18.0); Immature Granulocyte Absolute 0.03 K/mm3 (0.00-0.031); Immature Granulocyte Percent A 0.2 % (0-0.5); Mean Corpuscular HGB Conc 31.4 g/dl (32-36); Mean Corpuscular Hemoglobin 21.8 pg (26-34); Mean Corpuscular Volume 69.4 fl (80-100); Mean Platelet Volume 10.3 fl (7.4-10.4); Monocytes Absolute Auto 1.4 K/mm3 (0.1-0.6); Monocytes Percent Auto 11.1 % (2.6-8.5); Neutrophils Absolute Auto 9.4 K/mm3 (1.3-6.7); Neutrophils Percent Auto 77.1 % (45.5-73.1); Platelet Count Result 316 k/mm3 (150-375); Red Blood Count 4.64 M/mm3 (4.6-6.20); Red Cell Distribution Width 19.4 % (11.5-14.5); White Blood Count 12.3 K/mm3 (4.5-10.0)
[2020-10-27 05:52] LABS: Alanine Aminotransferase 69 U/L (4-50); Albumin Level 3.6 g/dL (3.5-5.1); Alkaline Phosphatase 161 U/L (38-126); Anion Gap 4 mmol/L (8-16); Aspartate Amino Transferase 49 U/L (17-59); Bilirubin,Total 2.1 mg/dL (0.2-1.3); Blood Urea Nitrogen 23 mg/dL (9-20); Carbon Dioxide 32 mmol/L (22-30); Chloride 103 mmol/L (98-107); Estimated CRCL calculation 37 ml/min; Estimated Glomerular Filt Rate 37; Glucose 101 mg/dL (75-110); Magnesium 1.8 mg/dL (1.6-2.3); Potassium 4.1 mmol/L (3.4-5.0); Sodium 139 mmol/L (137-145)
[2020-10-27 06:00] VITALS: BP 143/64; PULSE 91; RESP 18; TEMP 36.6; O2SAT 97
--- NOTE | 2020-10-27 07:52 | P.PNAN_ITS ---
Anes - Prog Note Post-Op Date/Time: 10/27/20 07:52 Cardiovascular status: normal Respiratory status: normal Airway patency: baseline Mental status: baseline Post-Op hydration status: normal Vital Signs: Last Vital Signs Temp 36.6 C 10/27/20 06:00 Pulse 91 10/27/20 06:00 Resp 18 10/27/20 06:00 BP 143/64 H 10/27/20 06:00 Pulse Ox 97 10/27/20 06:00 Pain Score (VAS): 2 I/O: Intake & Output 10/26/20 10/26/20 10/27/20 15:59 23:59 07:59 Intake Total 1190 250 100 Output Total 550 550 Balance 1190 -300 -450 Laboratory Tests 10/27/20 05:02 10/27/20 05:02 10/27/20 10/27/20 05:02 05:02 WBC 12.3 H RBC 4.64 Hgb 10.1 L Hct 32.2 L MCV 69.4 L MCH 21.8 L MCHC 31.4 L RDW 19.4 H Plt Count 316 MPV 10.3 Immature Gran % (Auto) 0.2 Neut % (Auto) 77.1 H Lymph % (Auto) 9.0 L [place] % (Auto) 11.1 H Eos % (Auto) 1.9 Baso % (Auto) 0.7 Lymph # (Auto) 1.10 [place] # (Auto) 1.4 H Eos # (Auto) 0.2 Baso # (Auto) 0.1 Abs Immat Gran (auto) 0.03 Absolute Neuts (auto) 9.4 H Absolute Nucleated RBC 0.0 Nucleated RBC % 0.0 Sodium 139 Potassium 4.1 Chloride 103 Carbon Dioxide 32 H Anion Gap 4 L BUN 23 H Creatinine 1.80 H Estim Creat Clear Calc 37 Estimated GFR 37 L Glucose 101 Calcium 9.0 Magnesium 1.8 Total Bilirubin 2.1 H AST 49 ALT 69 H Alkaline Phosphatase 161 H Total Protein 7.0 Albumin 3.6 Microbiology 10/25/20 09:03 Urine Cystoscopic Urine Culture - Final 10/24/20 23:59 Urine Clean Catch Urine Culture - Final Post-procedural complaints: none Patient Feedback: Patient satisfied with anesthetic care.
[2020-10-27 08:27] VITALS: PULSE 91
[2020-10-27] MEDS: OMEGA 3 POLYUNSAT FATTY ACIDS 1 GM CAP PO (08:27)
[2020-10-27] MEDS: FINASTERIDE 5 MG TABLET PO (08:27)
[2020-10-27] MEDS: CITALOPRAM HYDROBROMIDE 20 MG TABLET PO (08:27)
[2020-10-27] MEDS: THERAPEUTIC MULTIVITAMINS/MINERALS TAB (*BKC) 1 TABLET PO (08:27)
[2020-10-27] MEDS: METOPROLOL TARTRATE 50 MG TAB PO (08:27)
[2020-10-27] MEDS: ATORVASTATIN 40 MG TABLET PO (08:27)
[2020-10-27] MEDS: PANTOPRAZOLE 40 MG TABLET PO (08:28)
[2020-10-27 10:00] VITALS: BP 117/48; PULSE 62; RESP 18; TEMP 36.4; O2SAT 99
--- NOTE | 2020-10-27 10:17 | WPDGIPROGNO ---
Progress Note: A&P Additional Plan Patient feels good today. Denies any abdominal pain. Tolerating diet. Physical exam reveals patient be alert. Anicteric. Lungs are clear. Heart without murmur. Abdomen bowel sounds present soft nontender with no organomegaly. 1. Abdominal pain. Most likely related to kidney stones. Improved after urological cystoscopy and stents. 2. Dilated pancreatic duct. This is likely after previous cholecystectomy. No CBD stones identified by ERCP. 3. Periampullary diverticulum. This is incidental and likely accounts for abnormality seen on CT scan. No specific therapy warranted. 4. Prominent ampullary. Biopsies were taken to exclude a polyp. If adenomatous changes identified referral to tertiary care for resection would be required. Await histology. 5. Jacobo's esophagus. Clinically stable. Patient should remain on proton pump inhibitor. Plan outpatient EGD in my office after discharge. Patient should call to make appointment after discharge. 6. History of colon polyps. It has been 5 years since last colonoscopy. Follow-up colonoscopy electively in my office after discharge is suggested. Subjective Date/time seen: 10/27/20 10:17 Objective Data Vital Signs Vital Signs: Vital Signs - 24 hr 10/26/20 11:48 10/26/20 11:58 10/26/20 12:08 Temperature 98.2 F Pulse Rate 67 68 64 Respiratory Rate 22 H 24 H 20 Blood Pressure 146/69 H 156/73 H 163/75 H Pulse Oximetry 95 100 100 10/26/20 12:18 10/26/20 12:28 10/26/20 12:38 Temperature Pulse Rate 70 68 69 Respiratory Rate 20 18 22 H Blood Pressure 169/79 H 166/69 H 149/74 H Pulse Oximetry 96 95 98 10/26/20 12:48 10/26/20 14:00 10/26/20 18:00 Temperature 98.8 F 98.6 F Pulse Rate 72 70 73 Respiratory Rate 18 16 16 Blood Pressure 166/72 H 147/62 H 142/68 H Pulse Oximetry 98 96 97 10/26/20 20:00 10/26/20 20:21 10/26/20 22:00 Temperature 98.4 F Pulse Rate 73 73 65 Respiratory Rate 16 14 Blood Pressure 124/54 L Pulse Oximetry 97 95 10/27/20 02:00 10/27/20 06:00 10/27/20 08:27 Temperature 98.2 F 97.9 F Pulse Rate 65 91 91 Respiratory Rate 16 18 Blood Pressure 98/55 L 143/64 H Pulse Oximetry 96 97 10/27/20 10:00 Temperature 97.6 F Pulse Rate 62 Respiratory Rate 18 Blood Pressure 117/48 L Pulse Oximetry 99 Intake/Output Intake/Output: Intake & Output 10/24/20 10/25/20 10/26/20 10/27/20 23:59 23:59 23:59 23:59 Intake Total 1600 1610 390 Output Total 675 750 550 Balance 925 860 -160 Meds/Results Medications: Active Medications Generic Name Dose Route Start Last Admin Trade Name Freq PRN Reason Stop Dose Admin Acetaminophen 650 mg 10/25/20 05:00 Acetaminophen 325 Mg Tablet PO Q4H PRN Mild Pain (1-3) or Fever Atorvastatin Calcium 40 mg 10/25/20 09:00 10/27/20 08:27 Atorvastatin 40 Mg Tablet PO 40 mg DAILY AUDREY Administration Citalopram Hydrobromide 20 mg 10/25/20 09:00 10/27/20 08:27 Citalopram Hydrobromide 20 Mg Tablet PO 20 mg DAILY AUDREY Administration Finasteride 5 mg 10/25/20 09:00 10/27/20 08:27 Finasteride 5 Mg Tablet PO 5 mg DAILY AUDREY Administration Fish Oil 1 gm 10/25/20 09:00 10/27/20 08:27 Dowagiac 3 Polyunsat Fatty Acids 1 Gm Cap PO 1 gm DAILY AUDREY Administration Piperacillin/Tazobactam/Dextrose 3.375 gm in 50 mls @ 100 mls/hr 10/25/20 10:00 10/27/20 09:31 Zosyn 3.375 Gm/D5w 50ml Pm IVPB 100 mls/hr Q6H AUDREY Administration Metoprolol Tartrate 50 mg 10/26/20 21:00 10/27/20 08:27 Metoprolol Tartrate 50 Mg Tab PO 50 mg Q12HR AUDREY Administration Morphine Sulfate 2 mg 10/25/20 07:31 Morphine Sulfate (*Crx) 4 Mg/Ml Inj IV PUSH Q4H PRN Pain Rated 7-10 Multivitamins/Calcium 1 tablet 10/25/20 09:00 10/27/20 08:27 Therapeutic Multivitamins/Minerals Tab (*Bkc) PO 1 tablet DAILY AUDREY Administration Ondansetron HCl 4 mg 10/25/20 03:01 10/25/20 03:42 Ondansetron In
--- NOTE | 2020-10-27 12:13 | WPDUROPN2 ---
Progress Note: A&P Assessment and Plan (1) Ureteral calculus, right: Code(s): N20.1 - Calculus of ureter Status: Acute Assessment and Plan: Patient will go home with stent, will plan to do a cysto, right ureteroscopy with stone extraction, possible stent exchange, retrograde pyelogram, possible holmium laser as an outpatient. Patient should call to schedule outpatient appointment with Dr. Hercules after discharge. (2) UTI (urinary tract infection): Qualifiers: Urinary tract infection type: acute cystitis Code(s): N39.0 - Urinary tract infection, site not specified Status: Acute Assessment and Plan: urine culture negative. Subjective Subjective Date/Time Seen: 10/27/20 12:13 POD #2 Cystoscopy, right ureteroscopy with stone extraction, right stent placement, right retrograde pyelgoram. Patient doing very well. Review of Systems Cardiovascular: Cardiovascular: Denies chest pain Respiratory: Respiratory: Reports no additional respiratory complaints Gastrointestinal: Gastrointestinal: Denies abdominal pain, Denies nausea and Denies vomiting Genitourinary: Genitourinary: Denies hematuria, Denies dysuria and Denies flank pain Exam Cardio: Rate: regular rate GI: GI Palp: No abdominal tenderness, Yes Soft to palpation and No Tenderness to palpation present (GI) : General: Yes no CVA tenderness Extrem: General: no edema Objective Data Vital Signs Vital Signs: Vital Signs - 24 hr 10/26/20 12:18 10/26/20 12:28 10/26/20 12:38 Temperature Pulse Rate 70 68 69 Respiratory Rate 20 18 22 H Blood Pressure 169/79 H 166/69 H 149/74 H Pulse Oximetry 96 95 98 10/26/20 12:48 10/26/20 14:00 10/26/20 18:00 Temperature 98.8 F 98.6 F Pulse Rate 72 70 73 Respiratory Rate 18 16 16 Blood Pressure 166/72 H 147/62 H 142/68 H Pulse Oximetry 98 96 97 10/26/20 20:00 10/26/20 20:21 10/26/20 22:00 Temperature 98.4 F Pulse Rate 73 73 65 Respiratory Rate 16 14 Blood Pressure 124/54 L Pulse Oximetry 97 95 10/27/20 02:00 10/27/20 06:00 10/27/20 08:27 Temperature 98.2 F 97.9 F Pulse Rate 65 91 91 Respiratory Rate 16 18 Blood Pressure 98/55 L 143/64 H Pulse Oximetry 96 97 10/27/20 10:00 Temperature 97.6 F Pulse Rate 62 Respiratory Rate 18 Blood Pressure 117/48 L Pulse Oximetry 99 Intake/Output Intake/Output: Intake & Output 10/24/20 10/25/20 10/26/20 10/27/20 23:59 23:59 23:59 23:59 Intake Total 1600 1610 440 Output Total 675 750 550 Balance 925 860 -110 Meds/Results Medications: Active Medications Generic Name Dose Route Start Last Admin Trade Name Freq PRN Reason Stop Dose Admin Acetaminophen 650 mg 10/25/20 05:00 Acetaminophen 325 Mg Tablet PO Q4H PRN Mild Pain (1-3) or Fever Atorvastatin Calcium 40 mg 10/25/20 09:00 10/27/20 08:27 Atorvastatin 40 Mg Tablet PO 40 mg DAILY AUDREY Administration Citalopram Hydrobromide 20 mg 10/25/20 09:00 10/27/20 08:27 Citalopram Hydrobromide 20 Mg Tablet PO 20 mg DAILY AUDREY Administration Finasteride 5 mg 10/25/20 09:00 10/27/20 08:27 Finasteride 5 Mg Tablet PO 5 mg DAILY AUDREY Administration Fish Oil 1 gm 10/25/20 09:00 10/27/20 08:27 [place] 3 Polyunsat Fatty Acids 1 Gm Cap PO 1 gm DAILY AUDREY Administration Piperacillin/Tazobactam/Dextrose 3.375 gm in 50 mls @ 100 mls/hr 10/25/20 10:00 10/27/20 10:01 Zosyn 3.375 Gm/D5w 50ml Pm IVPB Infused Q6H AUDREY Infusion Metoprolol Tartrate 50 mg 10/26/20 21:00 10/27/20 08:27 Metoprolol Tartrate 50 Mg Tab PO 50 mg Q12HR AUDREY Administration Morphine Sulfate 2 mg 10/25/20 07:31 Morphine Sulfate (*Crx) 4 Mg/Ml Inj IV PUSH Q4H PRN Pain Rated 7-10 Multivitamins/Calcium 1 tablet 10/25/20 09:00 10/27/20 08:27 Therapeutic Multivitamins/Minerals Tab (*Bkc) PO 1 tablet DAILY AUDREY Administration Ondansetron HCl 4 mg 10/25/20 03:01 10/25/20 03:42 O
--- NOTE | 2020-10-27 13:43 | PM.DS ---
DS: Admitting Diagnosis Admitting Diagnosis Admitting Diagnosis: Choledocolithiasis, UTI, Kidney Stone DS: Discharge Diagnosis Discharge Diagnosis (1) Ureteral calculus, right: Code(s): N20.1 - Calculus of ureter Status: Acute Assessment and Plan: -CT demonstrated 6mm at right UVJ with mild hydronephrosis. - Underwent right ureteral stent placement, laser lithotripsy and extraction of stone fragments 10/[address] Pace with no complications -Plan to f/u with urology outpt -Cr still mildly elevated 1.8 but suspect this will improve now the stent is in -Urine cx negative, sent home on abx d/t stone (2) Bacteriuria: Code(s): R82.71 - Bacteriuria Status: Acute Assessment and Plan: -Suspect ureteral stone caused grossly abnormal UA. See above (3) Acute renal failure: Qualifiers: Acute renal failure type: unspecified Qualified Code(s): N17.9 - Acute kidney failure, unspecified Code(s): N17.9 - Acute kidney failure, unspecified Status: Acute Assessment and Plan: Suspect secondary to above -Cr 1.8, unchanged since admission (4) Choledocholithiasis: Code(s): K80.50 - Calculus of bile duct without cholangitis or cholecystitis without obstruction Status: Ruled-out Assessment and Plan: On CT abdomen/pelvis is possible stone in the common bile duct with biliary dilatation -ERCP by Dr. Barth today demonstrated a periampullary diverticulum/polyp without any stones in the biliary ducts. -bx pending, f/u with GI (5) Leukocytosis: Qualifiers: Leukocytosis type: unspecified Qualified Code(s): D72.829 - Elevated white blood cell count, unspecified Code(s): D72.829 - Elevated white blood cell count, unspecified Status: Acute Assessment and Plan: -Improving; Suspect secondary to acute UTI vs. Stress reaction from stone and procedure. Continue antibiotics outpt (6) Benign essential hypertension: Code(s): I10 - Essential (primary) hypertension Status: Chronic Assessment and Plan: Last bp 129/52 -Continue home dose of metoprolol (7) Benign prostatic hyperplasia: Qualifiers: Lower urinary tract symptom presence: unspecified whether lower urinary tract symptoms present Qualified Code(s): N40.0 - Benign prostatic hyperplasia without lower urinary tract symptoms Code(s): N40.0 - Benign prostatic hyperplasia without lower urinary tract symptoms Status: Chronic Assessment and Plan: -Continue finasteride. (8) Microcytic anemia: Code(s): D50.9 - Iron deficiency anemia, unspecified Status: Chronic Assessment and Plan: Hgb low but stable. -send home on iron as his anemia studies look to be early iron deficiency -plan for outpt colonoscopy (9) Chronic gastroesophageal reflux disease: Code(s): K21.9 - Gastro-esophageal reflux disease without esophagitis Status: Chronic Assessment and Plan: -History of Jacobo's esophagus with high-grade dysplasia. Continue BID PPI, follow-up with Dr. Barth. DS: Summary Hospital Course Reason for hospitalization: right UVJ stone Hospital Course: Pt is a 75 y/o male who presented emergency room for abdominal pain and CT showed right UVJ stone measuring 5-6 mm with mild hydronephrosis with bladder wall thickening with enlarged prostate which could include cystitis. He also had a possible choledocholithiasis with biliary dilation. Patient was started on Zosyn and admitted to the hospitalist service. He underwent a cystoscopy 10/25/20 and underwent a laser lithotripsy, stone manipulation with basket extraction, and right ureter stent placement. The patient's pain improved with this. His creatinine was 1.7 at admission and was 1.8 at discharge--unchanged. It will likely improve with the stent placement. His urine culture was negative x2 but he was continued
[2020-10-27 14:00] VITALS: BP 129/52; PULSE 64; RESP 16; TEMP 36.8; O2SAT 98
[2020-10-28 20:45] LABS: Erythropoietin (EPO) 41.9 mIU/mL (2.6-18.5)
[2020-10-28 21:39] LABS: Tissue Transglutaminase IgG Ab 8 U/mL (<6)
[2020-10-30 12:10] LABS: Tissue Transglutaminase IgA Ab 1 U/mL (<4)
--- NOTE | 2020-11-03 14:44 | PC.NURSE ---
faxed Tiss and Erythropoieton results to Dr. Abbasi
--- NOTE | 2020-11-09 14:40 | PC.NURSE ---
Erythropoietin elevated at 41.9. Results faxed to Dr. Abbasi. CARMITA Tavarez aware.
== END 2020-10-27 16:30 | disposition home or self-care (01) | DRG 661 ==
LOC: ANHED 10-25 03:24 → ANH2MED 10-25 03:56
PROVIDERS: Internal Medicine Gastroenterology; Physician Assistant; Urology; Admitting Provider Family Medicine; Emergency Provider Emergency Medicine; PCP Internal Medicine; Visit Provider Physician Assistant
PROC: 0T768DZ Dilation of Right Ureter with Intraluminal Device, Via Natural or Artificial Opening Endoscopic (ICD-10-PCS; CPT 52352; principal; 2020-10-25 08:30)
PROC: 0T768DZ Dilation of Right Ureter with Intraluminal Device, Via Natural or Artificial Opening Endoscopic (ICD-10-PCS; 2020-10-25 08:30)
PROC: 0FBC8ZX Excision of Ampulla of Vater, Via Natural or Artificial Opening Endoscopic, Diagnostic (ICD-10-PCS; CPT 43260; principal; 2020-10-26 11:00)
DX: N13.6 Pyonephrosis (principal); N17.9 Acute kidney failure, unspecified; K80.50 Calculus of bile duct without cholangitis or cholecystitis without obstruction; K86.89 Other specified diseases of pancreas; R82.71 Bacteriuria; N40.0 Benign prostatic hyperplasia without lower urinary tract symptoms; I12.9 Hypertensive chronic kidney disease with stage 1 through stage 4 chronic kidney disease, or unspecified chronic kidney disease; N18.1 Chronic kidney disease, stage 1; K21.9 Gastro-esophageal reflux disease without esophagitis; K22.711 Barrett's esophagus with high grade dysplasia; K44.9 Diaphragmatic hernia without obstruction or gangrene; D50.9 Iron deficiency anemia, unspecified; E78.5 Hyperlipidemia, unspecified; Z79.899 Other long term (current) drug therapy; Z86.010 Personal history of colon polyps; Z95.2 Presence of prosthetic heart valve
CPT/HCPCS: 36415; 74177; 74329; 80048; 80053; 81001; 82365; 82607; 82668; 82728; 82746; 83021; 83516; 83540; 83550; 83690; 83735; 85025; 87086; 88300; 88305; 96372; 96374; 99285; A9270; C1769; C2617; J0290; J0360; J0500; J1580; J2270; J2405; J2543; J2704; J3010; J7120; Q9966; Q9967

== ENCOUNTER 2020-11-06 02:10 | Outpatient (CLI) | payer MEDICARE, SELFPAY ==
[2020-11-06 20:00] LABS: SARS-CoV-2 RNA PCR Negative
== END 2020-11-06 02:11 | disposition home or self-care (01) ==
LOC: ANHCOVIDDT 02:10
PROVIDERS: PCP Internal Medicine; Visit Provider Internal Medicine Gastroenterology
DX: Z01.818 Encounter for other preprocedural examination (principal); Z20.828 Contact with and (suspected) exposure to other viral communicable diseases
CPT/HCPCS: 87635; C9803; U0003

== ENCOUNTER → 2020-11-09 08:07 | Day surgery (SDC) | payer MEDICARE, SELFPAY ==
[2020-11-04 09:22] VITALS: BMI 28.3
--- NOTE | 2020-11-09 08:19 | WPDANESEPPF ---
Anes - Initial Pre Proc Eval Procedure: Operation Date: 11/09/20 09:30 Proposed Procedures p Esophagogastroduodenoscopy & Screening Colonoscopy - Quinton Barth MD Date/Time: 11/09/20 08:19 Surgeon: Quinton Barth MD Pre Op Diagnosis: Jacobo's Esophagus,Hx Of Colon Polyps Patient Data Age: 75 Gender: M Height: 1.88 m Weight: 100 kg Allergies Allergy/AdvReac Type Severity Reaction Status Date / Time No Known Allergies Allergy Verified 11/09/20 08:25 Home Medications Medication Instructions Recorded Confirmed Type docusate sodium 100 mg tablet 100 mg PO DAILY 10/15/19 11/04/20 History igotnpmfndbq-Bu-fbnp-minerals 18 1 tablet PO DAILY 10/15/19 11/04/20 History mg-0.4 mg tablet omega-3 fatty acids 1,000 mg 1,000 mg PO DAILY 10/15/19 11/04/20 History capsule omeprazole 40 mg capsule,delayed 40 mg PO BID 10/15/19 11/04/20 History release finasteride 5 mg tablet 5 mg PO DAILY #90 tablet 06/15/20 11/04/20 Rx metoprolol tartrate 25 mg tablet 25 mg PO BID #180 tablet 06/26/20 11/04/20 Rx citalopram 20 mg PO DAILY 10/25/20 11/04/20 History atorvastatin 40 mg tablet See Rx Instructions .ROUTE 11/09/20 Rx .COMPLEX #90 tablet Patient hx anesthesia problems: none Family hx anesthesia problems: none PMFSH Past Medical History Medical History Jacobo's esophagus with high grade dysplasia Benign essential hypertension Benign prostatic hyperplasia CKD (chronic kidney disease) stage 1, GFR 90 ml/min or greater Hx of iron deficiency Overweight Surgical History Surgical History H/O aortic valve replacement History of aortic valve replacement Hx of hernia repair Family History Family History Mother Family history of heart disease in male family member before age 55, Onset Age: 70 Social History Social History Smoking status: Never smoker Alcohol intake: never Drinks per week: 1 Substance use: never Substance use type: does not use Living arrangements: with family Spiritual care concerns: No Anes - Eval Final PreProcedure Day of Procedure 11/09/20 08:19 Patient weight: obese Heart: regular rate and rhythm Lungs: clear to auscultation and normal air movement Airway: Mallampati scale class II Neurological: alert and oriented Last oral intake: >/= 8 hours ASA classification: III Emergent: no Anesthetic plan: proceed Anesthesia type and monitoring: general GIVS Informed Consent: The patient's anesthetic plan and its attendant risks and benefits were discussed with the patient/family/POA. Questions were solicited and answers provided to the satisfaction of the patient/family/POA.
--- NOTE | 2020-11-09 08:22 | WPDGICN ---
Assessment and Plan Assessment and plan (1) Jacobo's esophagus: Code(s): K22.70 - Jacobo's esophagus without dysplasia Status: Acute Assessment and Plan: Patient has a history of Jacobo's esophagus. Last endoscopy in 2014 revealed no evidence of dysplasia. Plan is to continue proton pump inhibitor therapy. An EGD will be performed now and is suggested at 3 year intervals. (2) History of colon polyps: Code(s): Z86.010 - Personal history of colonic polyps Status: Acute Assessment and Plan: Patient has a history of adenomatous colon polyps in the past. Most recent colonoscopy was 2014. Follow-up at 5 year intervals has been suggested. GI Consult Note Consult date/time: 11/09/20 08:22 HPI: Gerry Bains is a 75 year old male Presents today for surveillance EGD and colonoscopy. Patient states his current weight appetite bowel movements are stable. He did nor is heartburn. He has had no dysphagia. He has had no blood in his stools. His bowel habits are regular. His history is significant for colon polyps. Most recent colonoscopy 2014 sewed adenomatous colon polyps. Patient has a known history of Jacobo's esophagus. Most recent EGD in 2014 revealed no evidence of dysplasia. There was no stricture ring at that time. Patient has been maintained on proton pump inhibitor regularly since that time. Family history is noncontributory. There is no reported history of colon or rectal disease. Review of Systems Review of Systems: All systems reviewed & are unremarkable except as noted in HPI and below PMFSH Past Medical History Medical History Jacobo's esophagus with high grade dysplasia Benign essential hypertension Benign prostatic hyperplasia CKD (chronic kidney disease) stage 1, GFR 90 ml/min or greater Hx of iron deficiency Overweight Surgical History Surgical History H/O aortic valve replacement History of aortic valve replacement Hx of hernia repair Family History Family History Mother Family history of heart disease in male family member before age 55, Onset Age: 70 Social History Social History Smoking status: Never smoker Alcohol intake: never Drinks per week: 1 Substance use: never Substance use type: does not use Living arrangements: with family Spiritual care concerns: No Meds Home Medications and Allergies Home Medications Medication Instructions Recorded Confirmed Type docusate sodium 100 mg tablet 100 mg PO DAILY 10/15/19 11/04/20 History juyleyibpket-Zh-wsyv-minerals 18 1 tablet PO DAILY 10/15/19 11/04/20 History mg-0.4 mg tablet omega-3 fatty acids 1,000 mg 1,000 mg PO DAILY 10/15/19 11/04/20 History capsule omeprazole 40 mg capsule,delayed 40 mg PO BID 10/15/19 11/04/20 History release finasteride 5 mg tablet 5 mg PO DAILY #90 tablet 06/15/20 11/04/20 Rx metoprolol tartrate 25 mg tablet 25 mg PO BID #180 tablet 06/26/20 11/04/20 Rx citalopram 20 mg PO DAILY 10/25/20 11/04/20 History atorvastatin 40 mg tablet See Rx Instructions .ROUTE 11/09/20 Rx .COMPLEX #90 tablet Allergies Allergy/AdvReac Type Severity Reaction Status Date / Time No Known Allergies Allergy Verified 11/09/20 08:25 Exam Narrative: Exam Narrative: Physical exam reveals patient to be alert. Vital signs stable. HEENT exam unremarkable. Lungs are clear to auscultation and percussion. Heart is without murmur or extra sounds. Abdominal exam bowel sounds are present soft nontender with no organomegaly. Digital external rectal exam is normal.
[2020-11-09 08:26] VITALS: BP 149/83; PULSE 113; RESP 18; TEMP 36.3; O2SAT 98
[2020-11-09] MEDS: LACTATED RINGERS 1,000 ML 150 ML IV CONT (08:38)
[2020-11-09] MEDS: AMPICILLIN 2 GM/NS 100 ML 2 GM/100 ML BAG IVPB (08:41)
[2020-11-09] MEDS: BENZOCAINE (*SP) 60 ML SPRAY CAN (HURRICAINE) 1 SPRAY MUCOUS MEM (08:54)
[2020-11-09 09:22] VITALS: BP 75/49; PULSE 89; RESP 16; O2SAT 94
[2020-11-09 09:32] VITALS: BP 88/57; PULSE 75; RESP 20; O2SAT 93
[2020-11-09] MEDS: GENTAMICIN 80MG/SOD CHL 50 ML 80 MG/50 ML BAG 100 MG IVPB (09:40)
[2020-11-09 09:42] VITALS: BP 88/57; PULSE 75; RESP 17; O2SAT 93
== END ==
PROVIDERS: PCP Internal Medicine; Visit Provider Internal Medicine Gastroenterology
PROC: 0DJ08ZZ Inspection of Upper Intestinal Tract, Via Natural or Artificial Opening Endoscopic (ICD-10-PCS; CPT 43235; principal; 2020-11-09 09:30)
DX: Z12.11 Encounter for screening for malignant neoplasm of colon (principal); K64.8 Other hemorrhoids; K57.30 Diverticulosis of large intestine without perforation or abscess without bleeding; K20.90 Esophagitis, unspecified without bleeding; K22.70 Barrett's esophagus without dysplasia; K44.9 Diaphragmatic hernia without obstruction or gangrene; I12.9 Hypertensive chronic kidney disease with stage 1 through stage 4 chronic kidney disease, or unspecified chronic kidney disease; N18.1 Chronic kidney disease, stage 1; N40.0 Benign prostatic hyperplasia without lower urinary tract symptoms; E61.1 Iron deficiency; Z95.4 Presence of other heart-valve replacement; E66.8 Other obesity; Z68.25 Body mass index [BMI] 25.0-25.9, adult; Z86.010 Personal history of colon polyps
CPT/HCPCS: 43239; G0105; 88305; C9803; J0290; J1580; J2704; J7120; U0003

== ENCOUNTER 2021-03-23 09:58 | Outpatient (CLI) | payer MEDICARE, SELFPAY ==
--- NOTE | ~2021-03-23 | XR_ITS ---
EXAMINATION: XR abdomen/kub 1V INDICATION: Calculus of the kidney TECHNIQUE: Supine views of the abdomen were obtained on 2 radiographs. COMPARISON: 01/13/2019; CT, 10/25/2020 FINDINGS: A right ureterovesicular junction stone seen on the comparison CT is not definitely identif ied. There are phleboliths of the pelvis. In addition, there are stable phleboliths projecting in the right mid abdomen. No definite urolithiasis is identified. The bowel gas pattern is normal. There is a large volume of colonic stool. Stabilization screws are present in the left femoral neck. Calcifie d atherosclerosis is noted. Cholecystectomy clips are present in the right upper quadrant there are p artially imaged changes of cardiac valve surgery. Severe lumbar spondylosis is noted. IMPRESSION: 1. No definite urolithiasis identified. 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
== END 2021-03-23 09:59 | disposition home or self-care (01) ==
LOC: ANHIMG 10:00
PROVIDERS: PCP Internal Medicine; Visit Provider Urology
DX: N20.0 Calculus of kidney (principal)
CPT/HCPCS: 74018

== ENCOUNTER 2021-10-06 11:54 | Emergency (ER) | payer OTHER, MEDICARE, SELFPAY ==
--- NOTE | ~2021-10-06 | XR_ITS ---
XR hand RT min 3V DATE: 10/06/2021 12:22 INDICATION: Fall. Laceration. TECHNIQUE: 3 views COMPARISON: None FINDINGS: Diffuse osteopenia. No fracture or dislocation, periosteal reaction or bone destruction is detected. As osteophytic change involving primarily the interphalangeal joints. No subcutaneous emphysema or radiopaque soft tissue foreign body is detected. IMPRESSION: No fracture or dislocation or other acute bony or soft tissue abnormality Reviewed, dictated and finalized at location A. ER SELECTOR IMPRESSION: No fracture or dislocation or other acute bony or soft tissue abnor mality
--- NOTE | ~2021-10-06 | CT_ITS ---
EXAMINATION: CT brain wo con EXAM DATE: 10/06/2021 12:21 INDICATION: Head injury. Fall. Laceration on top of head. TECHNIQUE: Spiral CT of the head was performed without contrast. Axial, coronal and sagittal images were reviewed. The dose-length product (DLP) for this examination was 681.00 mGy-cm. The exposure w as tailored according to patient size, and iterative reconstruction (ASIR) was used as additional dos e reduction technique. Comparison is made to prior examination from 08/22/2019. 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 There is no acute intraparenchymal hemorrha ge. No evidence of intraparenchymal brain mass lesion. No evidence of acute infarction. Please not e that initial head CT has limited sensitivity for small or acute infarctions. There is mild to moder ate periventricular and subcortical hypodensity, nonspecific but probably related to small vessel isc hemic disease. There is mild to moderate prominence of the sulci and ventricles related to cerebral atrophy. There is intracranial carotid arteriosclerosis. There are no extra-axial collections. T here is no mass effect or midline shift. Patient has had bilateral ocular lens surgery. Soft tissue is unremarkable. Moderate left maxillary sinus mucoperiosteal thickening. The mastoid air cells are well aerated. IMPRESSION: 1. No acute intracranial findings. 2. Chronic age related findings. 3. 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 Reviewed, dictated and finalized at location B. 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
[2021-10-06 11:57] VITALS: BP 162/87; PULSE 65; RESP 16; TEMP 36.8; O2SAT 97
--- NOTE | 2021-10-06 12:26 | ED.FALL ---
HPI - Fall General Chief Complaint: Fall Stated Complaint: Fall Time Seen by Provider: 10/06/21 11:58 Source: patient and RN notes reviewed Mode of arrival: EMS Limitations: no limitations History of Present Illness HPI Narrative: This is a 76 year old male who presents for evaluation of a head injury. Patient was bending over to get a receipt off the ground when he fell over and hit top of his head. He fell onto concrete street. He denies LOC. He also denies neck pain, back pain, extremity pain after fall. He is unsure of his last tetanus shot. He denies taking anticoagulation or antiplatelets. Related Data Home Medications Medication Instructions Recorded Confirmed docusate sodium 100 mg tablet 100 mg PO DAILY 10/15/19 11/04/20 flyrczdlimod-Pf-isaa-minerals 18 1 tablet PO DAILY 10/15/19 11/04/20 mg-0.4 mg tablet omega-3 fatty acids 1,000 mg 1,000 mg PO DAILY 10/15/19 11/04/20 capsule omeprazole 10/06/21 Allergies Allergy/AdvReac Type Severity Reaction Status Date / Time No Known Allergies Allergy Verified 10/06/21 12:07 Review of Systems Review of Systems: All systems reviewed & are unremarkable except as noted in HPI and below PMFSH Past Medical History Medical History Jacobo's esophagus with high grade dysplasia Benign essential hypertension Benign prostatic hyperplasia CKD (chronic kidney disease) stage 1, GFR 90 ml/min or greater Hx of iron deficiency Overweight Surgical History Surgical History H/O aortic valve replacement History of aortic valve replacement Hx of hernia repair Family History Family History Mother Family history of heart disease in male family member before age 55, Onset Age: 70 Social History Social History Smoking status: Never smoker Alcohol intake: never Drinks per week: 1 Substance use: never Substance use type: does not use Spiritual care concerns: No Exam Const: General: no acute distress and alert Orientation/consciousness: patient oriented x3 HENMT: Mouth: Yes moist mucous membranes Throat: posterior oropharynx normal and uvula midline Other: skin abrasion and tears to left parietal scalp Eyes: Pupils: Equal, round and reactive pupils present EOM: EOMs intact bilaterally Neck: Neck: normal visual inspection Chest: Chest palpation & inspection: normal inspection of the chest and no tenderness Resp: Effort & Inspection: normal respiratory effort and no retractions Auscultation: clear to auscultation bilaterally Cardio: Rate: regular rate Rhythm: regular rhythm Heart sounds: no murmurs GI: GI Palp: Yes Soft to palpation, No Tenderness to palpation present (GI) and No Guarding due to palpation present (GI) Auscultation: normal bowel sounds Skin: Other: right dorsal head with skin tear of 2 cm Neuro: General: patient oriented x3, moves all extremities and CN's II-XI intact bilaterally Extrem: General: normal to inspection Psych: Mental Status: mental status grossly normal Affect: normal affect Course Reevaluation(s) Reevaluation #1: PAtient has been able to ambulate without any pain or new complaints. I cleaned and applied bandage to right hand wound. No need to suture hand or head wound . Date: 10/06/21 Time: 13:56 Vital Signs Vital signs: Vital Signs Temperature 98.3 F 10/06/21 11:57 Pulse Rate 65 10/06/21 11:57 Respiratory Rate 16 10/06/21 11:57 Blood Pressure 162/87 H 10/06/21 11:57 Pulse Oximetry 97 10/06/21 11:57 Temperature 98.3 F 10/06/21 11:57 Pulse Rate 59 L 10/06/21 13:46 Respiratory Rate 17 10/06/21 13:46 Blood Pressure 155/73 H 10/06/21 13:46 Pulse Oximetry 97 10/06/21 13:46 MDM - Fall Imaging Data Radiologist's impression: ITS Impre
[2021-10-06 12:27] VITALS: BP 141/72; PULSE 63; RESP 19; O2SAT 95
[2021-10-06] MEDS: TETANUS,DIPHTHERIA,AC PERTUSSIS ADULT (0.5 ML) BOOSTRIX IM (12:29)
[2021-10-06 12:31] VITALS: BP 140/72; PULSE 63; RESP 19; O2SAT 96
[2021-10-06 12:46] VITALS: BP 130/80; PULSE 61; RESP 18; O2SAT 96
[2021-10-06 13:32] VITALS: BP 157/82; PULSE 65; RESP 20; O2SAT 97
[2021-10-06 13:46] VITALS: BP 155/73; PULSE 59; RESP 17; O2SAT 97
== END 2021-10-06 14:19 | disposition home or self-care (01) ==
PROVIDERS: Emergency Provider General Practice; PCP Internal Medicine
DX: S01.01XA Laceration without foreign body of scalp, initial encounter (principal); S61.411A Laceration without foreign body of right hand, initial encounter; I12.9 Hypertensive chronic kidney disease with stage 1 through stage 4 chronic kidney disease, or unspecified chronic kidney disease; N18.1 Chronic kidney disease, stage 1; W18.30XA Fall on same level, unspecified, initial encounter; Z23 Encounter for immunization
CPT/HCPCS: 70450; 73130; 90471; 90715; 99284

== ENCOUNTER 2022-01-29 18:57 | Inpatient (IN) | payer MEDICARE, SELFPAY ==
--- NOTE | ~2022-01-29 | XR_ITS ---
EXAMINATION: XR chest 1V portable DATE: 01/29/2022 19:57 INDICATION: 2 weeks of left-sided flank pain TECHNIQUE: frontal view of the chest was obtained. COMPARISON: Chest radiograph dated 04/27/2016 FINDINGS: New retrocardiac opacity with smoothly curved peripheral margins with appearance suggesting gas and f luid within an enlarging now moderate-sized hiatal hernia with small sliding-type hiatal hernia evide nt on CT dated 05/22/2015. Streaky opacities in the right lower lung zone and favor atelectasis over pn eumonia. No pulmonary edema, pleural effusion or pneumothorax. Size is normal. Visualized bones and s oft tissues are unremarkable. Median sternotomy wires and aortic valve repair. IMPRESSION: 1. New retrocardiac opacity with appearance suggesting an enlarging now moderate-sized hiatal hernia. 2. Streaky right basilar opacities and favor atelectasis over pneumonia. 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 New retrocardiac opacity with appearance suggesting an enlarging now moderat e-sized hiatal hernia. 2. Streaky right basilar opacities and favor atelectasis over pneumonia.
--- NOTE | ~2022-01-29 | MR_ITS ---
EXAMINATION: MR MRCP wo/w con/w 3D wo ind DATE: 01/30/2022 15:08 INDICATION: Peritonitis. Pancreatic duct stone. TECHNIQUE: Magnetic resonance imaging (MRI) of the abdomen was performed without and with 19 mL Multi spring intravenous contrast. Sequences included coronal T2-weighted SS-FSE, coronal T2-weighted FS SS- FSE, coronal T2-weighted FS FIESTA, axial T2-weighted FS FIESTA, axial T2-weighted FIESTA, sagittal T 2-weighted SS-FSE, axial T1-weighted dual-echo FSPGR, axial T2-weighted SS-FSE, axial T1-weighted LAV A, axial T2-weighted STIR FSE. Thick-slab T2-weighted FRFSE-XL images were obtained for magnetic reso nance cholangiopancreatography (MRCP). Rotating maximum intensity projection 3-D reconstructions of t he volumetric data were created by the technologist. Postcontrast sequences included a time course of axial T1-weighted LAVA. COMPARISON: CT dated 01/29/2022 and MRI dated 05/24/2015 FINDINGS: ABDOMEN MRI: Mild cardiomegaly with small left ventricular apical pseudoaneurysm likely sequela of chronic infarct .. No pericardial or pleural effusion. Metallic magnetic field artifact associated with median sterno gale wires and aortic valve repair. Dependent atelectasis in the right lower lobe and additional atel ectasis at the medial left lower lobe along side a moderate to large sliding-type hiatal hernia. 7 mm nonenhancing T2 hyperintense cyst in the left hepatic lobe. Moderate intrahepatic biliary ductal dil ation. Gallbladder is surgically absent. Diffuse dilation of the main pancreatic duct. Homogeneous pa renchymal enhancement of the pancreas with no parenchymal edema or peripancreatic stranding to sugges t acute pancreatitis. Since the prior MRI there has been interval decrease in size of T2 hyperintense nonenhancing cystic lesions in the spleen, the more anteroinferior with irregular margins with some internal enhancing septations. There is corresponding parenchymal volume loss with capsular retractio n which is all likely sequela of chronic splenic infarcts. Cortical scarring likely related to chroni c infarcts at the lower pole of the right kidney. There are bilateral T2 hyperintense nonenhancing re nal cysts. 1.9 cm heterogeneously T2 hyperintense enhancing nodule in the mid right kidney consistent with renal cell carcinoma. Visualized portions of the bowels are unremarkable. No pathologically enl arged abdominal lymphadenopathy. ABDOMEN MRCP: The common bile duct is dilated to 1.3 cm. Suggestion of an 8 x 4 mm filling defect consistent with l ikely at least partially obstructing gallstone at the distalmost common bile duct which is best appre ciated on coronal series 3, image 24 There is also dilation of the main pancreatic duct which measure s up to 6 mm at the head of the pancreas, 5 mm at the pancreatic body with further tapering the tail of the pancreas. There is a 13 x 6 x 4 mm low signal intensity filling defect consistent with a likel y partially obstructing stone at the distalmost pancreatic duct near the ampulla. IMPRESSION: 1. 13 x 6 x 4 mm filling defect in the distal main pancreatic duct near the ampulla consistent with a likely partially obstructing ductal stone with dilation of the main pancreatic duct is 6 mm at the h ead of the pancreas and 5 mm at the body. 2. Dilation of the common bile duct 1.3 cm and moderate intrahepatic biliary ductal dilation with sug gestion of an additional 8 x 4 mm stone at the distalmost common bile duct. 3. 1.9 cm enhancing mass at the interpolar region of the right kidney concerning for renal cell carci noma. Findings were discussed with Courtney Toro, the nurse caring for the patient, at 5:07 PM. 4. Mild cardiomegaly with chronic infarct and secondary silhouette is at the left ventricular apex. 5. Moderate to large sliding-type hiatal hernia. 6. 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
--- NOTE | ~2022-01-29 | CT_ITS ---
EXAMINATION: CT abdomen pelvis w con DATE: 01/29/2022 20:30 INDICATION: Left-sided abdominal pain TECHNIQUE: Computed tomography (CT) of the abdomen and pelvis was performed with 100 mL Omnipaque-350 intravenous contrast. Automated exposure control and iterative reconstruction technique were employe d. The dose-length product was 1293.65 mGy-cm. COMPARISON: None FINDINGS: Atelectasis in the bilateral lower lobes, right greater than left. Moderate to large sliding type hia valentín hernia. Mild cardiomegaly. Median sternotomy wires and aortic valve repair. Myocardial thinning a nd small pseudoaneurysm at the left ventricular apex consistent with sequela of chronic infarct. No p ericardial or pleural effusion. Mild intra and extra hepatic biliary ductal dilation with pneumobilia likely related to prior cholecy stectomy and sphincterotomy with surgical clips at the gallbladder fossa. There is a 2 mm stone at th e distalmost main pancreatic duct which is dilated to 7 mm the head of the pancreas, 4 mm at the body and 3 mm at the tail of the pancreas. There is however no peripancreatic stranding to suggest acute interstitial pancreatitis. Interval increase in size of multilobulated cystic appearing regions of th e spleen with associated splenic atrophy and some splenic calcifications which could represent sequel a of prior trauma or more likely infarct. Bilateral adrenal glands are normal. Scattered regions of c ortical scarring at the lower pole of the right kidney consistent with prior infection or infarct. Sm all bilateral renal cysts the largest a 1.4 cm exophytic cyst cyst at the right kidney. There is muco javier enhancement at the right renal pelvis and could not exclude ascending urinary tract infection. Moderate amount of stool scattered throughout the colon. No bowel obstruction. Appendix is normal. Bl adder is normal. Prostatomegaly. Small fat-containing left inguinal hernia. No free intraperitoneal g as or fluid. No pathologically enlarged abdominal or pelvic lymphadenopathy. There is calcified ather osclerosis of the aorta and many of the other arteries. Severe disc height loss at L3-L4. There are b ridging osteophytes at multiple levels in the spine, consistent with diffuse idiopathic skeletal hype rostosis (DISH). Laxity fixation at an old left subcapital fracture which is healed in near-anatomic alignment. IMPRESSION: 1. 2 mm stone at the ampulla of the dilated main pancreatic duct but no peripancreatic inflammatory s tranding to suggest acute appendicitis. Correlate with amylase and lipase levels. 2. Urothelial enhancement at the right renal pelvis and could not exclude ascending urinary tract inf ection. Correlate with urinalysis. 3. Chronic mild intra and extra hepatic biliary ductal dilation with some pneumobilia likely related to sphincterotomy associated with prior cholecystectomy but would also correlate with liver function tests 4. Mild cardiomegaly with chronic infarct and secondary pseudoaneurysm at the left ventricular apex. 5. Moderate to large sliding-type hiatal hernia. 6. 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 7. Prostatomegaly. 8. Fat-containing left inguinal hernia. 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 D CUTTER IMPRESSION: 1. 2 mm stone at the ampulla of the dilated main pancreatic duct but no peripan creatic inflammatory stranding to suggest acute appendicitis. Correlate with am ylase and lipase levels. 2. Urothelial enhancement at the right renal pelvis and could not exclude ascen ding urinary tract infection. Correlate with urinalysis. 3. Chronic mild intra and extra hepatic biliary ductal dilation with some pneum obilia likely related to sphincterotomy associated with prior cholecystectomy b ut would also correlate with liver funct
[2022-01-29 19:01] VITALS: BP 145/92; PULSE 120; RESP 18; TEMP 36.2; O2SAT 99
--- NOTE | 2022-01-29 19:11 | ECG_ITS ---
Measurements Intervals [place] Rate: 105 P: 42 [place]: 199 QRS: -68 QRSD: 116 T: 85 QT: 444 QTc: 588 Interpretive Statements SINUS TACHYCARDIA POSSIBLE LEFT ATRIAL ENLARGEMENT [-0.1mV P-WAVE IN V1/V2] INCOMPLETE RIGHT BUNDLE BRANCH BLOCK [90+ ms QRS DURATION, TERMINAL R IN V1/V2, 40+ ms S IN I/aVL/V4/V5/V6] LEFT ANTERIOR FASCICULAR BLOCK [QRS AXIS <= -45, QR IN I, RS IN II] POOR R WAVE PROGRESSION, CAN NOT RULE OUT OLD ANTERIOR mi INFERIOR MYOCARDIAL INFARCTION , OF INDETERMINATE AGE [40+ ms Q WAVE AND/OR ST/T ABNORMALITY IN II/aVF] NO PREVIOUS ECG AVAILABLE FOR COMPARISON Electronically Signed On 01-30-2022 16:38:06 CDT by Erinn Mendez M.D.
--- NOTE | 2022-01-29 19:15 | ED.GENADULT ---
HPI - General Adult General Chief complaint: Abdominal Pain Stated complaint: left flank pain Time Seen by Provider: 01/29/22 19:04 Source: RN notes reviewed History of Present Illness HPI narrative: Patient presents emergency department from home for left flank pain. Patient states that symptoms began approximately 2 weeks ago the pain is located in the left flank and radiates in the left upper abdomen pain is described as sharp and stabbing. Patient states the pain is better when he takes ibuprofen. He denies any fevers or chills, chest pain, shortness of breath, nausea, vomiting, diarrhea or any other symptoms Related Data Home Medications Medication Instructions Recorded Confirmed docusate sodium 100 mg tablet 100 mg PO DAILY 10/15/19 11/04/20 [id number]-[id number]-minerals 18 1 tablet PO DAILY 10/15/19 11/04/20 mg-0.4 mg tablet omega-3 fatty acids 1,000 mg 1,000 mg PO DAILY 10/15/19 11/04/20 capsule omeprazole 10/06/21 Allergies Allergy/AdvReac Type Severity Reaction Status Date / Time No Known Allergies Allergy Verified 10/06/21 12:07 Review of Systems Review of Systems: Gen.: Denies fevers or chills Eyes: Denies eye pain or visual change ENT: Denies congestion Respiratory: Denies shortness of breath or cough CV: Denies chest pain or palpitations GI: Reports left abdominal pain, denies nausea, emesis or diarrhea Musculoskeletal: Denies back pain or muscle pain Neuro: Denies numbness, tingling, weakness or focal weakness Skin: Denies rash Except as documented, all other systems reviewed and negative PMF Past Medical History Medical History Jacobo's esophagus with high grade dysplasia Benign essential hypertension Benign prostatic hyperplasia CKD (chronic kidney disease) stage 1, GFR 90 ml/min or greater Hx of iron deficiency Overweight Surgical History Surgical History H/O aortic valve replacement History of aortic valve replacement Hx of hernia repair Family History Family History Mother Family history of heart disease in male family member before age 55, Onset Age: 70 Social History Social History Smoking status: Never smoker Alcohol intake: never Drinks per week: 1 Substance use: never Substance use type: does not use Spiritual care concerns: No Exam Narrative: APPEARANCE: No acute distress, nontoxic, resting in bed HEENT: Normocephalic, atraumatic, OMM RESPIRATORY: No respiratory distress, clear to auscultation bilaterally with no rhonchi wheezing or rales CARDIOVASCULAR: RRR s murmur ABDOMINAL: Soft nondistended tender palpation left upper quadrant left lower quadrant no tenderness right upper quadrant right lower quadrant no rebound or guarding, left flank tenderness no overlying rash seen MUSCULOSKELETAl: Moves all extremities. No clubbing, cyanosis or edema. NEURO: Awake and alert. Following commands, speech normal, no focal deficits SKIN:: Warm, dry. Normal Color PSYCHIATRIC: Normal affect/mood Course Course Emergency Course: Discussed with Dr. Jefferson for GI agrees with consult Discussed with EDELMIRA Kate for Dr. Manuel presentation work-up agrees with admission Discussed with patient and family results of workup and diagnosis. Discussed need for admission. Patient and family understand and agree to current treatment plan Vital Signs Vital signs: Vital Signs Temperature 97.2 F L 01/29/22 19:01 Pulse Rate 120 H 01/29/22 19:01 Respiratory Rate 18 01/29/22 19:01 Blood Pressure 145/92 H 01/29/22 19:01 Pulse Oximetry 99 01/29/22 19:01 Temperature 97.2 F L 01/29/22 19:01 Pulse Rate 120 H 01/29/22 19:01 Respiratory Rate 18 01/29/22 19:01 Blood Pressure 145/92 H 01/29/22 19:01 Pulse Oximetry 99 01/29/22 19:01
[2022-01-29 19:20] LABS: Basophils Absolute Auto 0.1 K/mm3 (0.0-0.1); Basophils Percent Auto 0.7 % (0.2-1.2); Eosinophils Absolute Auto 0.4 K/mm3 (0-0.3); Eosinophils Percent Auto 3.5 % (0-4.4); Hematocrit 49.8 % (42.0-52.0); Hemoglobin 15.6 g/dL (14.0-18.0); Immature Granulocyte Absolute 0.05 K/mm3 (0.00-0.031); Immature Granulocyte Percent A 0.5 % (0-0.5); Lymphocytes Absolute Auto 1.68 K/mm3 (0.9-3.2); Lymphocytes Percent Auto 15.5 % (18.3-44.2); Mean Corpuscular HGB Conc 31.3 g/dl (32-36); Mean Corpuscular Volume 79.8 fl (80-100); Mean Platelet Volume 10.1 fl (7.4-10.4); Monocytes Absolute Auto 1.1 K/mm3 (0.1-0.6); Neutrophils Absolute Auto 7.6 K/mm3 (1.3-6.7); Neutrophils Percent Auto 69.8 % (45.5-73.1); Platelet Count Result 291 k/mm3 (150-375); Red Blood Count 6.24 M/mm3 (4.6-6.20); Red Cell Distribution Width 18.8 % (11.5-14.5); White Blood Count 10.9 K/mm3 (4.5-10.0)
[2022-01-29 19:31] LABS: Alanine Aminotransferase 20 U/L (4-50); Albumin Level 4.8 g/dL (3.5-5.1); Alkaline Phosphatase 153 U/L (38-126); Anion Gap 10 mmol/L (8-16); Aspartate Amino Transferase 38 U/L (17-59); Bilirubin,Total 1.8 mg/dL (0.2-1.3); Blood Urea Nitrogen 21 mg/dL (9-20); Calcium 11.7 mg/dL (8.4-10.2); Carbon Dioxide 33 mmol/L (22-30); Chloride 98 mmol/L (98-107); Estimated CRCL calculation 45 ml/min; Estimated Glomerular Filt Rate 49; Glucose 129 mg/dL (65-110); Lipase 690 U/L (23-300); Potassium 4.5 mmol/L (3.4-5.0); Sodium 141 mmol/L (137-145)
[2022-01-29 19:32] LABS: Lactic Acid Reflex 2.5 mmol/L (0.7-2.1)
[2022-01-29 19:43] LABS: Troponin I 0.015 ng/mL (0.000-0.034)
[2022-01-29] MEDS: SODIUM CHLORIDE 0.9% IV 1,000 ML 999 ML IV CONT ×2 (19:47→23:14)
[2022-01-29] MEDS: ONDANSETRON INJ 4 MG/2 ML VIAL IV PUSH ×2 (19:47→23:15)
[2022-01-29 20:01] VITALS: BP 193/100; PULSE 111; O2SAT 97
[2022-01-29 20:28] VITALS: BP 222/107
[2022-01-29 21:01] VITALS: BP 172/78; PULSE 109; RESP 18; O2SAT 98
[2022-01-29 21:07] LABS: Add Urine Microscopic? YES; Appearance Urine Clear (Clear); Bilirubin Urine Negative (Negative); Blood Urine 1+ (Negative); Color Urine Yellow (Yellow); Glucose Urine UA Negative (Negative); Ketones Urine Negative (Negative); Leukocyte Esterase Ur Negative LEU/UL (Negative); Nitrate Urine Negative (Negative); Protein Urine Negative (Negative); Specific Grav Ur 1.023 (1.001-1.035); Urobilinogen Urine Negative mg/dL (<2.0); WBC Urine 0-3 /hpf
[2022-01-29 22:18] LABS: Reflex Lactic Acid Yes or No Add Lactic
[2022-01-29 22:29] VITALS: BP 187/116; PULSE 105; RESP 20; TEMP 36.2; O2SAT 98
--- NOTE | 2022-01-29 22:37 | ADMGEN ---
This patient, Gerry Bains, was admitted to 2 Medical Room 261-01 @338. Patient/family oriented to hospital policies and general routines including ID bracelet, bed and alarms, visiting hours, pain management, procedures, bathroom and other care routines, personal items, smoking policy, room service/diet, and visiting hours. Information on how to activate the Rapid Response Team has been discussed. Patient/Family are encouraged to report perceived risks to care and to ask questions if they do not understand what they are told or what they should do.
[2022-01-29 22:52] VITALS: BP 186/106; PULSE 103; RESP 20; TEMP 36.2; O2SAT 93
[2022-01-29 22:57] LABS: Lactic Acid 1.3 mmol/L (0.7-2.1)
[2022-01-29] MEDS: MORPHINE SULFATE (*CRX) 2 MG/ML INJ IV PUSH (23:14)
--- NOTE | 2022-01-29 23:14 | PM.IMHP ---
H&P: HPI History of Present Illness Date/Time: 01/29/22 23:14 Chief Complaint: Left abdominal pain Narrative: 77-year-old male with past medical history of cholecystectomy, hyperlipidemia, hypertension, BPH and GERD who presented to the ER with 2 weeks of left-sided abdominal pain. He reports that the abdominal pain has been ongoing for 2 weeks. It is in the left upper quadrant up under his ribcage in radiates around to the back. The pain is a fiber 6/10 in intensity it is aching in nature. The pain is been constant but is worse with some position changes. He has not noticed it worsening with eating. He thinks he has been eating and drinking adequately but has been having some significant nausea without vomiting. He reports having normal bowel movements without hematochezia or melena. He does have a history of a hiatal hernia and prior esophagitis and ulcer. He was also had an incidental finding of a mass at the ampulla of Vater on ERCP in 2014. He was to the hospital October 2020 due to obstructing right kidney stone and UTI. Imaging at that time demonstrated a dilated common bile duct with suspected bile duct stone (the history of prior ambulate the mass was not known at that time) subsequently, he underwent ERCP again and a papular mass was noted without evidence of stone. He has been taking ibuprofen for his abdominal pain which has helped. He has been taking 400 mg a few times a day. She was having some nausea on arrival to the medical floor but his nausea has been relieved since he Zofran. He was having moderate pain when he arrived to the medical floor and was actually having associated hypertension due to the pain. He received 1 dose of morphine 2 mg with resolution of pain. Review of Systems Review of Systems: 12 systems were reviewed with pertinent positives and negatives per HPI. Except as documented in the HPI, all other systems were reviewed and are negative. [facility] Past Medical History Medical History (Updated 01/30/22 @ 03:59 by Ileana Mondragon DO) 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 Instead ERCP at that time demonstrate persistent presence of the mass. Jacobo's esophagus with high grade dysplasia With last EGD October 2020 demonstrating squamous mucosa chronic esophagitis with benign ulcer Benign essential hypertension Benign prostatic hyperplasia Chronic kidney disease, stage 3 Coronary artery disease DVT (deep venous thrombosis) April 2016 secondary to prolonged immobilization during complicated hospital course GERD (gastroesophageal reflux disease) Hearing loss Hx of iron deficiency Hyperlipidemia Iron deficiency anemia Large hiatal hernia Obstructive sleep apnea STEMI (ST elevation myocardial infarction) (04/2015) 100% occlusion of distal LAD with unsuccessful balloon angioplasty with heavy thrombus burden and embolic event to the distal most part of the LAD treated medically Ureteral calculus, right (~10/2020) With cystoscopy, and laser lithotripsy Surgical History Surgical History (Updated 01/30/22 @ 03:50 by Ileana Mondragon DO) History of aortic valve replacement (~2009) 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 History of cardiac catheterization Hx of hernia repair S/p left hip fracture (04/2016) ORIF Family History Family History (Updated 01/30/22 @ 03:51 by Ileana Mondragon DO) Mother CHF (congestive heart failure) Father Cerebrovascular accident Social History Social History (Updated 01/30/22 @ 03:54 by Ileana Mondragon DO) Social History: He lives in [place] with his of 51 years. He smoked 1/4 pack of cigarettes per day for approximately 10 years but quit smoking over 40 years ago. He drinks 1 beer every 2 weeks. 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
[2022-01-30] VITALS (8 sets, daily range): BP systolic 111–152; BP diastolic 48–81; PULSE 61–97; RESP 16–20; TEMP 36.1–36.6; O2SAT 94–99; BMI 26.9
[2022-01-30] MEDS: SODIUM CHLORIDE 0.9% IV 1,000 ML 100 ML IV CONT ×2 (00:19→12:59)
[2022-01-30] MEDS: PANTOPRAZOLE SODIUM IV 40 MG VIAL IV PUSH ×2 (00:53→10:02)
--- NOTE | 2022-01-30 03:24 | PC.NURSE ---
Daylight Savings Time For Daylight Savings Time Ending in the Fall - Clocks are moved back. For Daylight Savings Time Beginning in the Spring - Clocks are moved ahead. For [facility], the time of change occurs at 0200 hrs. Time is taken from the patient observer. This entry on the patient's chart recognizes the change in time reflected during documentation. Example: 2 entries for vital signs may be charted for 0200 hrs.
[2022-01-30 05:10] LABS: Basophils Absolute Auto 0.1 K/mm3 (0.0-0.1); Basophils Percent Auto 0.5 % (0.2-1.2); Eosinophils Absolute Auto 0.1 K/mm3 (0-0.3); Eosinophils Percent Auto 0.9 % (0-4.4); Hematocrit 43.1 % (42.0-52.0); Hemoglobin 13.7 g/dL (14.0-18.0); Immature Granulocyte Absolute 0.04 K/mm3 (0.00-0.031); Immature Granulocyte Percent A 0.4 % (0-0.5); Lymphocytes Absolute Auto 0.82 K/mm3 (0.9-3.2); Lymphocytes Percent Auto 7.4 % (18.3-44.2); Mean Corpuscular HGB Conc 31.8 g/dl (32-36); Mean Corpuscular Hemoglobin 24.7 pg (26-34); Mean Corpuscular Volume 77.7 fl (80-100); Mean Platelet Volume 10.6 fl (7.4-10.4); Monocytes Percent Auto 8.7 % (2.6-8.5); Neutrophils Absolute Auto 9.1 K/mm3 (1.3-6.7); Neutrophils Percent Auto 82.1 % (45.5-73.1); Platelet Count Result 253 k/mm3 (150-375); Red Blood Count 5.55 M/mm3 (4.6-6.20); Red Cell Distribution Width 18.3 % (11.5-14.5); White Blood Count 11.1 K/mm3 (4.5-10.0)
[2022-01-30 05:27] LABS: Alanine Aminotransferase 21 U/L (4-50); Albumin Level 3.8 g/dL (3.5-5.1); Alkaline Phosphatase 130 U/L (38-126); Anion Gap 7 mmol/L (8-16); Aspartate Amino Transferase 41 U/L (17-59); Bilirubin,Total 1.7 mg/dL (0.2-1.3); Blood Urea Nitrogen 18 mg/dL (9-20); Calcium 10.2 mg/dL (8.4-10.2); Carbon Dioxide 27 mmol/L (22-30); Chloride 105 mmol/L (98-107); Estimated CRCL calculation 53 ml/min; Estimated Glomerular Filt Rate 59; Glucose 119 mg/dL (65-110); Lipase 1002 U/L (23-300); Potassium 4.6 mmol/L (3.4-5.0); Sodium 139 mmol/L (137-145)
--- NOTE | 2022-01-30 08:44 | PM.IMPN ---
Progress Note: A&P Assessment and Plan (1) Pancreatic duct calculus: Code(s): K86.89 - Other specified diseases of pancreas Status: Acute Assessment and Plan: -The patient does have some mild elevation of his lipase and could have some mild and a pancreatitis. Yesterday was 690 and today is 1002. -CT scan does demonstrate possible pancreatic duct stone however given patient's prior history of biliary duct mass at the ampulla Vater mass is also possibility. -Patient is currently NPO with pain medications and Zofran ordered. -Gastroenterology has been consulted. (2) Pancreatitis: Qualifiers: Chronicity: acute Pancreatitis type: biliary Acute pancreatitis complication: no infection or necrosis Qualified Code(s): K85.10 - Biliary acute pancreatitis without necrosis or infection Code(s): K85.90 - Acute pancreatitis without necrosis or infection, unspecified Status: Acute Assessment and Plan: -as above (3) Dehydration: Code(s): E86.0 - Dehydration Status: Acute Assessment and Plan: -The patient's hemoglobin is relatively elevated compared to labs 2 years ago. -This in part could be due to dehydration. -Will continue IV fluid hydration and close monitoring -Improving (4) CKD (chronic kidney disease) stage 1, GFR 90 ml/min or greater: Code(s): N18.1 - Chronic kidney disease, stage 1 Status: Acute Assessment and Plan: -Patient does have chronic kidney disease in his creatinine is about baseline. -I have instructed the patient that is probably not in his best interest to take ibuprofen with his kidney impairment. -He was not aware of history of renal insufficiency. -Improving Subjective Date/time seen: 01/30/22 08:44 Interval history: 77-year-old male with past medical history of cholecystectomy, hyperlipidemia, hypertension, BPH and GERD, admitted to the hospital for pancreatitis. Pt is feeling better with the morphine and IVF. Abdominal pain is mild. No nausea. Did have one episode of emesis ovennight. Currently NPO. Review of Systems Review of Systems: All systems reviewed & are unremarkable except as noted in HPI and below Exam Narrative: General: No acute distress, well-developed well-nourished, appears stated age, non toxic HEENT: Mucous membranes are tacky, no conjunctival pallor, no scleral icterus Respiratory: Clear to auscultation bilaterally, no increased work of breathing Cardiovascular: Regular rate, regular rhythm, no murmurs Gastrointestinal: Soft, nontender, nondistended, positive bowel sounds Skin: No pallor, non jaundice Musculoskeletal: no edema or tenderness Neurological: Alert and oriented, speech is clear, no facial asymmetry, no gross motor deficits noted on limited exam Psychiatric: Appropriate mood and affect, pleasant and cooperative Hematologic/lymphatic: No petechiae, no bruising Objective Data Vital Signs Vital Signs: Vital Signs - 24 hr 01/29/22 19:01 01/29/22 20:01 01/29/22 20:28 Temperature 97.2 F L Pulse Rate 120 H 111 H Respiratory Rate 18 Blood Pressure 145/92 H 193/100 H 222/107 H Pulse Oximetry 99 97 01/29/22 21:01 01/29/22 22:29 01/29/22 22:52 Temperature 97.2 F L 97.1 F L Pulse Rate 109 H 105 H 103 H Respiratory Rate 18 20 20 Blood Pressure 172/78 H 187/116 H 186/106 H Pulse Oximetry 98 98 93 01/30/22 00:10 01/30/22 04:00 01/30/22 06:11 Temperature 97.2 F L 97.0 F L Pulse Rate 97 86 Respiratory Rate 20 18 Blood Pressure 136/49 L 152/48 H Pulse Oximetry 99 96 96 Intake/Output Intake/Output: Intake & Output 01/27/22 01/28/22 01/29/22 01/31/22 23:59 23:59 23:59 00:59 Intake Total 1000 1000 Output Total 400 Balance 1000 600 Meds/Results Medications: Active Medications Generic Name Dose Route Start Last Admin Trade Name Freq PRN Reason Stop Dose Admin Sodium Chloride 1,000 mls @ 100 mls/hr
--- NOTE | 2022-01-30 11:53 | WPDGICN ---
Assessment and Plan Assessment and plan (1) Pancreatitis: Qualifiers: Chronicity: acute Pancreatitis type: biliary Acute pancreatitis complication: no infection or necrosis Qualified Code(s): K85.10 - Biliary acute pancreatitis without necrosis or infection Code(s): K85.90 - Acute pancreatitis without necrosis or infection, unspecified Status: Acute Assessment and Plan: no nausea but persistent pain for almost 2 weeks, had lipase 1000 will get MRCP tomorrow to assess biliary system and pancreatic duct ? small stone, also last ERCP noted possible periampullary polyp but biopsies were benign. Patient denies alcohol intake. more recommendations after MRCP, Dr Barth returns tomorrow liquid diet for now (2) Pancreatic duct calculus: Code(s): K86.89 - Other specified diseases of pancreas Status: Acute Assessment and Plan: will assess with mrcp (3) Left upper quadrant abdominal pain of unknown etiology: Code(s): R10.12 - Left upper quadrant pain Status: Acute (4) Jacobo's esophagus with high grade dysplasia: Code(s): K22.711 - Jacobo's esophagus with high grade dysplasia Status: Acute Assessment and Plan: last egd with esophagitis, biopsies benign (5) History of aortic valve replacement: Onset Date: ~2009 Code(s): Z95.2 - Presence of prosthetic heart valve Status: Chronic GI Consult Note Consult date/time: 01/30/22 11:53 Reason for consult: abdominal pain, elevated lipase, stone in PD HPI: Gerry Bains is a 77 year old male history of cholecystectomy, hyperlipidemia, hypertension, s/p AVR, BPH and Jacobo's s/p RFA years ago at [facility] because high grade dysplasia (last EGD [address] Barth without dysplasia), he also had ERCP on 10/[address] scan that showed dilated bile duct and possible stone. ERCP finding of periampullary diverticula, also periampullary polyp but biopsies were benign, did not find stone. He is here with 2 weeks of left upper quadrant pain under his ribcage that radiates around to the back. The pain is a fiber 6/10 in intensity and aching in nature. The pain is been constant but is worse with some position changes. He can not tell of any triggers, no weight loss, no nausea. Finally decided to come to ER for further evaluation. Blood work showed elevated lipase 1000, bili 1.[address] scan reviewed and showed 2 mm stone at the ampulla of the dilated main pancreatic duct but no peripancreatic inflammatory stranding to suggest acute appendicitis, urothelial enhancement at the right renal pelvis and could not exclude ascending urinary tract infection, chronic mild intra and extra hepatic biliary ductal dilation with some pneumobilia likely related to sphincterotomy associated with prior cholecystectomy, moderate to large sliding-type hiatal hernia. He is comfortable now, no nausea, no fever. Review of Systems Constitutional: Constitutional: Denies chills Eyes: Eyes: Denies blurry vision ENT: Reports Normal hearing present Cardiovascular: Cardiovascular: Denies chest pain Respiratory: Respiratory: Denies dyspnea Gastrointestinal: Gastrointestinal: Reports abdominal pain and Denies nausea Genitourinary: Genitourinary: Denies urinary incontinence Musculoskeletal: Musculoskeletal: Denies neck pain Integumentary/Breasts: Skin/Breast: Denies dry skin Neurologic: Denies headache(s) Psychiatric: Psychiatric: Reports no additional psychiatric complaints PMFSH Past Medical History Medical History (Updated 01/30/22 @ 12:07 by Levon Renteria MD) 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 Instead ERCP at that time demonstrate persistent presence of the mass. Jacobo's esophagus with high grade dysplasia With last EGD October 2020 demonstrating squamous mucosa chronic esopha
[2022-01-30] MEDS: MORPHINE SULFATE (*CRX) 2 MG/ML INJ IV PUSH (16:10)
[2022-01-31] VITALS (10 sets, daily range): BP systolic 123–163; BP diastolic 63–88; PULSE 59–72; RESP 16–18; TEMP 36.2–36.7; O2SAT 93–97
[2022-01-31] MEDS: SODIUM CHLORIDE 0.9% IV 1,000 ML 100 ML IV CONT ×2 (04:27→21:10)
[2022-01-31 05:40] LABS: Basophils Absolute Auto 0.1 K/mm3 (0.0-0.1); Basophils Percent Auto 0.6 % (0.2-1.2); Eosinophils Absolute Auto 0.4 K/mm3 (0-0.3); Eosinophils Percent Auto 4.2 % (0-4.4); Hemoglobin 12.1 g/dL (14.0-18.0); Immature Granulocyte Absolute 0.03 K/mm3 (0.00-0.031); Immature Granulocyte Percent A 0.3 % (0-0.5); Lymphocytes Absolute Auto 1.55 K/mm3 (0.9-3.2); Lymphocytes Percent Auto 16.5 % (18.3-44.2); Mean Corpuscular HGB Conc 31.8 g/dl (32-36); Mean Corpuscular Hemoglobin 24.7 pg (26-34); Mean Corpuscular Volume 77.6 fl (80-100); Mean Platelet Volume 10.2 fl (7.4-10.4); Monocytes Percent Auto 10.3 % (2.6-8.5); Neutrophils Absolute Auto 6.4 K/mm3 (1.3-6.7); Neutrophils Percent Auto 68.1 % (45.5-73.1); Platelet Count Result 229 k/mm3 (150-375); White Blood Count 9.4 K/mm3 (4.5-10.0)
[2022-01-31 05:49] LABS: Alanine Aminotransferase 28 U/L (4-50); Albumin Level 3.4 g/dL (3.5-5.1); Alkaline Phosphatase 136 U/L (38-126); Anion Gap 6 mmol/L (8-16); Aspartate Amino Transferase 32 U/L (17-59); Blood Urea Nitrogen 17 mg/dL (9-20); Calcium 8.7 mg/dL (8.4-10.2); Carbon Dioxide 28 mmol/L (22-30); Chloride 103 mmol/L (98-107); Estimated CRCL calculation 49 ml/min; Estimated Glomerular Filt Rate 53; Glucose 82 mg/dL (65-110); Lipase 348 U/L (23-300); Potassium 3.9 mmol/L (3.4-5.0); Sodium 137 mmol/L (137-145)
[2022-01-31] MEDS: METOPROLOL TARTRATE 25 MG TABLET PO ×2 (08:25→21:08)
[2022-01-31] MEDS: CITALOPRAM HYDROBROMIDE 20 MG TABLET PO (08:25)
[2022-01-31] MEDS: ATORVASTATIN 40 MG TABLET PO (08:25)
[2022-01-31] MEDS: FINASTERIDE 5 MG TABLET PO (08:26)
[2022-01-31] MEDS: PANTOPRAZOLE SODIUM IV 40 MG VIAL IV PUSH (08:26)
--- NOTE | 2022-01-31 08:36 | WPDGIPROGNO ---
Progress Note: A&P Assessment and Plan (1) Pancreatic duct calculus: Code(s): K86.89 - Other specified diseases of pancreas Status: Acute Assessment and Plan: CT scan suggest pancreatic duct stone. Treatment of the stones best accomplished at tertiary care center. Would recommend referral to Dr. Cameron at [facility], or Dr Huff at [facility]. for therapeutic a ERCP in restriction of the stone. Additionally at that time they may assess periampullary polyp identified at ERCP 1 year ago. (2) Choledocholithiasis: Code(s): K80.50 - Calculus of bile duct without cholangitis or cholecystitis without obstruction Status: Acute Assessment and Plan: Choledocholithiasis suggested by MRCP. This can be treated at tertiary care center at same time as pancreatic duct stone assessment. Patient was felt to possibly have a periampullary polyp. Had biopsy of this revealed only hyperplastic tissue 1 year ago. (3) Pancreatitis: Qualifiers: Chronicity: acute Pancreatitis type: biliary Acute pancreatitis complication: no infection or necrosis Qualified Code(s): K85.10 - Biliary acute pancreatitis without necrosis or infection Code(s): K85.90 - Acute pancreatitis without necrosis or infection, unspecified Status: Acute Assessment and Plan: Patient pancreatitis improving clinically. Lipase has decreased to approximately 300 range. Would allow low-fat diet at this time. As stated referral to tertiary care center advised. (4) History of colon polyps: Code(s): Z86.010 - Personal history of colonic polyps Status: Acute Assessment and Plan: Patient had a history of colon polyps 2019. Recommend follow-up colonoscopy at 5 year intervals. (5) Jacobo's esophagus: Code(s): K22.70 - Jacobo's esophagus without dysplasia Status: Acute Assessment and Plan: Patient gives a history of Barretts esophagus. Currently been treated for GE reflux. Last endoscopy failed to confirm histology of Barretts esophagus. Follow-up may still be beneficial in 3 years. With an EGD at that time. Subjective Date/time seen: 01/31/22 08:36 Patient alert comfortable this morning. Notes some pain along the left rib margin. Review of Systems Review of Systems: All systems reviewed & are unremarkable except as noted in HPI and below Exam Narrative: Physical exam reveals patient be alert comfortable rest lungs are clear. Heart without murmur. Abdomen bowel sounds present soft nontender no masses noted he reports some tenderness along the left rib margin. Objective Data Vital Signs Vital Signs: Vital Signs - 24 hr 01/30/22 10:00 01/30/22 14:02 01/30/22 18:40 Temperature 97.4 F L 97.4 F L 98 F Pulse Rate 63 61 62 Respiratory Rate 16 16 16 Blood Pressure 125/81 119/57 L 137/64 Pulse Oximetry 95 94 96 01/30/22 20:24 01/30/22 20:35 01/31/22 00:07 Temperature 97.7 F Pulse Rate 65 65 Respiratory Rate 16 16 Blood Pressure 111/53 L Pulse Oximetry 98 98 97 01/31/22 00:12 01/31/22 04:36 01/31/22 08:00 Temperature 97.2 F L 97.6 F 97.7 F Pulse Rate 65 72 65 Respiratory Rate 16 16 16 Blood Pressure 123/63 153/76 H 163/79 H Pulse Oximetry 96 93 94 01/31/22 08:25 Temperature Pulse Rate 65 Respiratory Rate Blood Pressure Pulse Oximetry Intake/Output Intake/Output: Intake & Output 01/28/22 01/29/22 01/30/22 01/31/22 22:59 22:59 23:59 23:59 Intake Total 50 Output Total 200 Balance -150 Meds/Results Medications: Active Medications Generic Name Dose Route Start Last Admin Trade Name Jjq PRN Reason Stop Dose Admin Atorvastatin Calcium 40 mg 01/31/22 09:00 01/31/22 08:25 Atorvastatin 40 Mg Tablet PO 40 mg DAILY AUDREY Administration Citalopram Hydrobromide 20 mg 01/31/22 09:00 01/31/22 08:25 Citalopram Hydrobromide 20 Mg Tablet PO 20 mg DAILY AUDREY Administration Finasteride 5 mg
--- NOTE | 2022-01-31 09:03 | PM.IMPN ---
Progress Note: A&P Assessment and Plan (1) Pancreatic duct calculus: Code(s): K86.89 - Other specified diseases of pancreas Status: Acute Assessment and Plan: -The patient does have some mild elevation of his lipase and could have some mild and a pancreatitis. -CT scan does demonstrate possible pancreatic duct stone however given patient's prior history of biliary duct mass at the ampulla Vater mass is also possibility. -MRCP w/ pancreatic duct stone and common bile duct stone. -Pt seen by Dr. Tab NICOLAS this morning. I discussed case with him and he believes best course of action is to have patient follow up outpatient with Dr. Cameron at [facility] for ERCP where he can address both stones. -As far as the pancreatitis is concerned, patient seems to be improving clinically with less pain and tolerating PO. Lipase is also decreasing. Will advance to low fat diet and continue to monitor. If he continues improving then plan will be to discharge him home with outpatient follow up. Will attempt to touch base with Dr. Cameron to ensure patient will have close prompt follow up. (2) Pancreatitis: Qualifiers: Chronicity: acute Pancreatitis type: biliary Acute pancreatitis complication: no infection or necrosis Qualified Code(s): K85.10 - Biliary acute pancreatitis without necrosis or infection Code(s): K85.90 - Acute pancreatitis without necrosis or infection, unspecified Status: Acute Assessment and Plan: -as above (3) Dehydration: Code(s): E86.0 - Dehydration Status: Acute Assessment and Plan: -The patient's hemoglobin is relatively elevated compared to labs 2 years ago. -This in part could be due to dehydration. -Will continue IV fluid hydration and close monitoring -Improving (4) CKD (chronic kidney disease) stage 1, GFR 90 ml/min or greater: Code(s): N18.1 - Chronic kidney disease, stage 1 Status: Acute Assessment and Plan: -Patient does have chronic kidney disease in his creatinine is about baseline. -I have instructed the patient that is probably not in his best interest to take ibuprofen with his kidney impairment. -He was not aware of history of renal insufficiency. -Improving (5) Renal mass: Code(s): N28.89 - Other specified disorders of kidney and ureter Status: Acute Assessment and Plan: -incidental finding on MRCP -concerning for renal cell carcinoma -consult to urology for management, possible biospy while inpatient? Subjective Date/time seen: 01/31/22 09:03 Interval history: 77-year-old male with past medical history of cholecystectomy, hyperlipidemia, hypertension, BPH and GERD, admitted to the hospital for pancreatitis. Pt is feeling much better. Denies significant abdominal pain. No N/V. No cp/sob. Doing well with clear liquids. Review of Systems Review of Systems: All systems reviewed & are unremarkable except as noted in HPI and below Exam Narrative: General: No acute distress, well-developed well-nourished, appears stated age, non toxic HEENT: Mucous membranes are tacky, no conjunctival pallor, no scleral icterus Respiratory: Clear to auscultation bilaterally, no increased work of breathing Cardiovascular: Regular rate, regular rhythm, no murmurs Gastrointestinal: Soft, mild diffuse ttp, nondistended, positive bowel sounds Skin: No pallor, non jaundice Musculoskeletal: no edema or tenderness Neurological: Alert and oriented, speech is clear, no facial asymmetry, no gross motor deficits noted on limited exam Psychiatric: Appropriate mood and affect, pleasant and cooperative Hematologic/lymphatic: No petechiae, no bruising Objective Data Vital Signs Vital Signs: Vital Signs - 24 hr 01/30/22 10:00 01/30/22 14:02 01/30/22 18:40 Temperature 97.4 F L 97.4 F L 98 F Pulse Rate 63 61 62 Respiratory Rate 16 16 16 Blood Pressure 125/81 1
--- NOTE | 2022-01-31 16:00 | WPDURCON ---
Assessment and Plan Assessment and plan (1) Renal mass: Code(s): N28.89 - Other specified disorders of kidney and ureter Status: Acute Assessment and Plan: The patient needs to follow up as an outpatient for further evaluation of his right renal mass with Dr. Hercules as an outpatient. There is no further evaluation needed at this time. Urology Consult Note HPI Date Seen: 01/31/22 Requesting Physician: Francesca Thornton PA-C Primary Care Provider: Dina Mao, Consult Narrative Narrative: Gerry Bains is a 77 year old male who presents to the ER on 01/29 with sharp, stabbing left flank pain that had been present for 2 weeks. He was then diagnosed with pancreatitis and kept for treatment and evaluation. He was incidentally found to have a 1.9cm enhancing right renal mass on MRI on 01/30/22 that indicates possible renal cell carcinoma. A CT was done on showing urothelial enhancement at the right renal pelvis as well as two pancreatic duct stones. His UA does show 3-5 RBC's/HPF but is otherwise normal. He denies chronic UTI's, right flank pain, hematuria or difficutly with urination. He had a CT in 2019 which did not indicate a mass a that time. His WBC is 9.4 and creatinine is 1.30. GI has seen the patient and is requesting he be seen at [facility] by Dr. Cameron for an ERCP. He is a patient of Dr. Hercules' and was seen in the office in 03/2021 for BPH and prostate cancer screenings. He takes Finasteride for BPH. 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 Instead ERCP at that time demonstrate persistent presence of the mass. Jacobo's esophagus with high grade dysplasia With last EGD October 2020 demonstrating squamous mucosa chronic esophagitis with benign ulcer Benign essential hypertension Benign prostatic hyperplasia Chronic kidney disease, stage 3 Coronary artery disease DVT (deep venous thrombosis) April 2016 secondary to prolonged immobilization during complicated hospital course GERD (gastroesophageal reflux disease) Hearing loss Hx of iron deficiency Hyperlipidemia Iron deficiency anemia Large hiatal hernia Left upper quadrant abdominal pain of unknown etiology Obstructive sleep apnea STEMI (ST elevation myocardial infarction) (04/2015) 100% occlusion of distal LAD with unsuccessful balloon angioplasty with heavy thrombus burden and embolic event to the distal most part of the LAD treated medically Ureteral calculus, right (~10/2020) With cystoscopy, and laser lithotripsy Surgical History Surgical History History of aortic valve replacement (~2009) 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 History of cardiac catheterization Hx of hernia repair S/p left hip fracture (04/2016) ORIF Family History Family History Mother CHF (congestive heart failure) Father Cerebrovascular accident Social History Social History Social History: He lives in [place] with his of 51 years. He smoked 1/4 pack of cigarettes per day for approximately 10 years but quit smoking over 40 years ago. He drinks 1 beer every 2 weeks. He karla
[2022-01-31] MEDS: MORPHINE SULFATE (*CRX) 2 MG/ML INJ IV PUSH (17:37)
[2022-02-01 01:11] VITALS: BP 168/80; PULSE 63; RESP 17; TEMP 36.5; O2SAT 97
[2022-02-01 05:17] VITALS: BP 157/82; PULSE 63; RESP 18; TEMP 36.4; O2SAT 95
[2022-02-01 05:56] LABS: Basophils Absolute Auto 0.1 K/mm3 (0.0-0.1); Basophils Percent Auto 0.8 % (0.2-1.2); Eosinophils Absolute Auto 0.4 K/mm3 (0-0.3); Eosinophils Percent Auto 4.8 % (0-4.4); Hematocrit 42.4 % (42.0-52.0); Hemoglobin 13.6 g/dL (14.0-18.0); Immature Granulocyte Absolute 0.02 K/mm3 (0.00-0.031); Immature Granulocyte Percent A 0.2 % (0-0.5); Lymphocytes Absolute Auto 1.36 K/mm3 (0.9-3.2); Lymphocytes Percent Auto 14.9 % (18.3-44.2); Mean Corpuscular HGB Conc 32.1 g/dl (32-36); Mean Corpuscular Hemoglobin 24.7 pg (26-34); Mean Corpuscular Volume 77.1 fl (80-100); Mean Platelet Volume 9.9 fl (7.4-10.4); Monocytes Absolute Auto 1.1 K/mm3 (0.1-0.6); Monocytes Percent Auto 12.2 % (2.6-8.5); Neutrophils Absolute Auto 6.1 K/mm3 (1.3-6.7); Neutrophils Percent Auto 67.1 % (45.5-73.1); Platelet Count Result 243 k/mm3 (150-375); Red Cell Distribution Width 17.2 % (11.5-14.5); White Blood Count 9.1 K/mm3 (4.5-10.0)
[2022-02-01 06:04] LABS: Alanine Aminotransferase 25 U/L (4-50); Albumin Level 3.8 g/dL (3.5-5.1); Alkaline Phosphatase 140 U/L (38-126); Anion Gap 7 mmol/L (8-16); Aspartate Amino Transferase 32 U/L (17-59); Bilirubin,Total 1.3 mg/dL (0.2-1.3); Blood Urea Nitrogen 19 mg/dL (9-20); Calcium 8.5 mg/dL (8.4-10.2); Carbon Dioxide 28 mmol/L (22-30); Chloride 103 mmol/L (98-107); Estimated CRCL calculation 49 ml/min; Estimated Glomerular Filt Rate 53; Glucose 94 mg/dL (65-110); Lipase 535 U/L (23-300); Potassium 4.2 mmol/L (3.4-5.0); Sodium 138 mmol/L (137-145)
[2022-02-01 08:05] VITALS: PULSE 72
[2022-02-01] MEDS: FINASTERIDE 5 MG TABLET PO (08:05)
[2022-02-01] MEDS: CITALOPRAM HYDROBROMIDE 20 MG TABLET PO (08:05)
[2022-02-01] MEDS: METOPROLOL TARTRATE 25 MG TABLET PO (08:05)
[2022-02-01] MEDS: ATORVASTATIN 40 MG TABLET PO (08:05)
[2022-02-01] MEDS: PANTOPRAZOLE SODIUM IV 40 MG VIAL IV PUSH (08:05)
[2022-02-01 10:10] VITALS: BP 120/70; PULSE 81; RESP 16; TEMP 36.7; O2SAT 93
--- NOTE | 2022-02-01 10:15 | WPDGIPROGNO ---
Progress Note: A&P Assessment and Plan (1) Pancreatic duct calculus: Code(s): K86.89 - Other specified diseases of pancreas Status: Acute Assessment and Plan: MRCP suggest pancreatic duct calculus as well as possible CBD stone. Recommend tertiary care referral for ERCP. Pancreatic sphincterotomy not performed at our institution. Additionally patient has a history of a periampullary polyp that should be evaluated tertiary care center. (2) Choledocholithiasis: Code(s): K80.50 - Calculus of bile duct without cholangitis or cholecystitis without obstruction Status: Acute Assessment and Plan: Common bile duct stone suggested by MRCP. Plan to have this evaluated by ERCP at a tertiary care center. (3) Pancreatitis: Qualifiers: Chronicity: acute Pancreatitis type: biliary Acute pancreatitis complication: no infection or necrosis Qualified Code(s): K85.10 - Biliary acute pancreatitis without necrosis or infection Code(s): K85.90 - Acute pancreatitis without necrosis or infection, unspecified Status: Acute Assessment and Plan: Pancreatitis appears to have resolved clinically. Lipase has decreased. Low-fat diet advised. Referral as stated for for ERCP at [facility] suggested. (4) History of colon polyps: Code(s): Z86.010 - Personal history of colonic polyps Status: Acute (5) Renal mass: Code(s): N28.89 - Other specified disorders of kidney and ureter Status: Acute Assessment and Plan: Urology service following for renal mass identified on CT scan but this is suspicious for renal cell carcinoma. Workup per their direction. Subjective Date/time seen: 02/01/22 10:15 Patient alert more comfortable today. Denies abdominal pain. He has been tolerating diet. Patient denies jaundice. Bowel habits have normalized. Review of Systems Review of Systems: All systems reviewed & are unremarkable except as noted in HPI and below Exam Narrative: Physical exam reveals patient be alert comfortable at rest HEENT exam reveals no icterus. Lungs are clear. Heart without murmur. Abdomen bowel sounds present soft nontender with no organomegaly. Objective Data Vital Signs Vital Signs: Vital Signs - 24 hr 01/31/22 12:00 01/31/22 16:00 01/31/22 16:16 Temperature 98.0 F 97.7 F Pulse Rate 59 L 70 Respiratory Rate 18 16 Blood Pressure 154/71 H 153/73 H Pulse Oximetry 95 95 97 01/31/22 20:28 01/31/22 21:08 02/01/22 01:11 Temperature 98 F 97.7 F Pulse Rate 66 68 63 Respiratory Rate 16 17 Blood Pressure 140/88 168/80 H Pulse Oximetry 95 97 02/01/22 05:17 02/01/22 08:05 Temperature 97.6 F Pulse Rate 63 72 Respiratory Rate 18 Blood Pressure 157/82 H Pulse Oximetry 95 Intake/Output Intake/Output: Intake & Output 01/29/22 01/30/22 01/31/22 02/01/22 22:59 23:59 23:59 23:59 Intake Total 1530 220 Output Total 1790 450 Balance -260 -230 Meds/Results Medications: Active Medications Generic Name Dose Route Start Last Admin Trade Name Freq PRN Reason Stop Dose Admin Atorvastatin Calcium 40 mg 01/31/22 09:00 02/01/22 08:05 Atorvastatin 40 Mg Tablet PO 40 mg DAILY AUDREY Administration Citalopram Hydrobromide 20 mg 01/31/22 09:00 02/01/22 08:05 Citalopram Hydrobromide 20 Mg Tablet PO 20 mg DAILY AUDREY Administration Finasteride 5 mg 01/31/22 09:00 02/01/22 08:05 Finasteride 5 Mg Tablet PO 5 mg DAILY AUDREY Administration Metoprolol Tartrate 5 mg 01/29/22 22:58 Metoprolol Tartrate Inj 5 Mg/5 Ml Vial IV PUSH Q6H PRN SBP greater than 180 Metoprolol Tartrate 25 mg 01/31/22 09:00 02/01/22 08:05 Metoprolol Tartrate 25 Mg Tablet PO 25 mg Q12HR AUDREY Administration Morphine Sulfate 2 mg 01/29/22 22:58 01/31/22 17:37 Morphine Sulfate (*Crx) 2 Mg/Ml Inj IV PUSH 2 mg Q4H PRN Administration Pain Rated 7-10 Pantoprazole Sodium 40 mg
--- NOTE | 2022-02-01 10:31 | PC.NURSE ---
On 02/01/22 [employer] student Brenda Koch performed and assessment and documented in this patient's chart. I agree with [facility] charting.
--- NOTE | 2022-02-01 12:35 | PM.DS ---
DS: Admitting Diagnosis Discharge Date 02/01/22 Admitting Diagnosis pancreatic duct stone DS: Discharge Diagnosis Discharge Diagnosis (1) Pancreatic duct calculus: Code(s): K86.89 - Other specified diseases of pancreas Status: Acute Assessment and Plan: -The patient does have some mild elevation of his lipase and could have some mild and a pancreatitis. -CT scan does demonstrate possible pancreatic duct stone however given patient's prior history of biliary duct mass at the ampulla Vater mass is also possibility. -MRCP w/ pancreatic duct stone and common bile duct stone. -Pt seen by Dr. Tab NICOLAS. I discussed case with him and he believes best course of action is to have patient follow up outpatient with Dr. Cameron at [facility] for ERCP where he can address both stones. -As far as the pancreatitis is concerned, patient seems to be improving clinically with less pain and tolerating PO. Lipase is also decreasing. -As of today patient's pain has almost completely resolved and he is tolerating low fat diet without difficulty. Spoke w/ Dr. Cameron's office at [facility] and the nursing staff is faxing over the requested information so that they can get him in next week for ERCP. Will provide patient with office information, he is aware that he needs to call and make his own appt. All questions and concerns addressed. (2) Pancreatitis: Qualifiers: Acute pancreatitis complication: no infection or necrosis Chronicity: acute Pancreatitis type: biliary Qualified Code(s): K85.10 - Biliary acute pancreatitis without necrosis or infection Code(s): K85.90 - Acute pancreatitis without necrosis or infection, unspecified Status: Acute Assessment and Plan: -as above (3) Dehydration: Code(s): E86.0 - Dehydration Status: Acute Assessment and Plan: -The patient's hemoglobin is relatively elevated compared to labs 2 years ago. -This in part could be due to dehydration. -Resolved (4) CKD (chronic kidney disease) stage 1, GFR 90 ml/min or greater: Code(s): N18.1 - Chronic kidney disease, stage 1 Status: Acute Assessment and Plan: -Patient does have chronic kidney disease in his creatinine is about baseline. -I have instructed the patient that is probably not in his best interest to take ibuprofen with his kidney impairment. -He was not aware of history of renal insufficiency. -Improving (5) Renal mass: Code(s): N28.89 - Other specified disorders of kidney and ureter Status: Acute Assessment and Plan: -incidental finding on MRCP -concerning for renal cell carcinoma -consult to urology for management, he will see Dr. Hercules as an outpatient DS: Summary Hospital Course Reason for hospitalization: 77-year-old male with past medical history of cholecystectomy, hyperlipidemia, hypertension, BPH and GERD, admitted to the hospital for pancreatic duct stone and pancreatitis. Please see HPI for further details. Hospital Course: Please see above for details of hospital course. Status at Discharge Cognitive/behavioral status at discharge: stable Functional status at discharge: independent ambulation Overall status at discharge: patient is progressing back to baseline Time Spent with Patient Time attestation: Total time spent providing and/or coordinating discharge services: 60 Time spent: Greater than 30 minutes Exam Narrative: General: No acute distress, well-developed well-nourished, appears stated age, non toxic HEENT: moist mucous membranes, no conjunctival pallor, no scleral icterus Respiratory: Clear to auscultation bilaterally, no increased work of breathing Cardiovascular: Regular rate, regular rhythm, no murmurs Gastrointestinal: Soft, non tender, nondistended, positive bowel sounds Skin: No pallor, non jaundice Musculoskeletal: no edema or tenderness Neurological: Alert and or
[2022-02-01 14:32] VITALS: BP 124/75; PULSE 65; RESP 18; TEMP 36.4; O2SAT 95
== END 2022-02-01 16:30 | disposition home or self-care (01) | DRG 440 ==
LOC: ANHED 21:52 → ANH2MED 22:24
PROVIDERS: Physician Assistant; Admitting Provider Hospitalist; Emergency Provider Emergency Medicine; PCP Internal Medicine; Visit Provider Family Medicine
DX: K85.10 Biliary acute pancreatitis without necrosis or infection (principal); K80.50 Calculus of bile duct without cholangitis or cholecystitis without obstruction; K86.89 Other specified diseases of pancreas; E86.0 Dehydration; E78.5 Hyperlipidemia, unspecified; N40.0 Benign prostatic hyperplasia without lower urinary tract symptoms; K21.9 Gastro-esophageal reflux disease without esophagitis; I12.9 Hypertensive chronic kidney disease with stage 1 through stage 4 chronic kidney disease, or unspecified chronic kidney disease; N18.1 Chronic kidney disease, stage 1; N28.89 Other specified disorders of kidney and ureter; I25.10 Atherosclerotic heart disease of native coronary artery without angina pectoris; D50.9 Iron deficiency anemia, unspecified; G47.33 Obstructive sleep apnea (adult) (pediatric); I25.2 Old myocardial infarction; Z95.2 Presence of prosthetic heart valve; Z86.718 Personal history of other venous thrombosis and embolism; Z87.891 Personal history of nicotine dependence; Z86.010 Personal history of colon polyps
CPT/HCPCS: 36415; 71045; 74177; 74183; 76376; 80053; 81001; 83605; 83690; 84484; 85025; 93005; 96361; 96374; 96375; 96376; 99285; A9270; A9577; C9113; G0378; J2270; J2405; J7030; Q9967

== ENCOUNTER 2022-04-08 16:10 | Outpatient (CLI) | payer MEDICARE, SELFPAY ==
--- NOTE | ~2022-04-08 | CT_ITS ---
EXAMINATION: CT abdomen pelvis wo/w con DATE: 04/08/2022 16:55 INDICATION: Right abdominal pain. Dilated renal pelvis. TECHNIQUE: Computed tomography (CT) of the abdomen and pelvis was performed without and with intraven ous contrast using a total of 130 mL Omnipaque 300 intravenous contrast with a double-bolus technique for simultaneous opacification of the renal parenchyma and renal collecting system. Automated exposu re control and iterative reconstruction technique were employed. The dose-length product was 2475.23 mGy-cm. COMPARISON: CT abdomen and pelvis 01/29/2022 FINDINGS: The visualized portions of the lung bases demonstrate mild atelectasis. There is chronic pleural thic kening on the right. There is chronic rounded atelectasis in right lower lobe. 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 There are changes of aortic valve replacement. There are coronary artery calcifications. No pericardial effusion. There is a moderate-sized sliding hiatal hernia. Pneumobilia is noted, likely secondary to sphincterotomy. There is mild intrahepatic biliary duct dilatation, likely secondary to cholecystectomy. There are peripheral infarcts in the sp kristopher with interval decrease in size. The pancreas and adrenal glands are normal. There is mild atroph y of the kidneys, right worse than left. There are cysts in the kidneys measuring up to 15 mm on the right. There is no urolithiasis. The ureters are well opacified and are normal. The bladder is normal . The prostate is moderately enlarged. There are bilateral inguinal hernias containing fat. There are no dilated loops of bowel. The appendix is normal. There are no pathologically enlarged lymph nodes. There is no free intraperitoneal fluid. There is an old healed fracture of proximal left femur with pins in the femoral head and neck. 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 There is moderate lumb ar spondylosis. There are bridging endplate osteophytes at multiple levels in the spine, consistent w ith diffuse idiopathic skeletal hyperostosis (DISH). IMPRESSION: 1. Moderate-sized sliding hiatal hernia. 2. Bilateral inguinal hernias containing fat. 3. Mild atrophy of the kidneys. 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
[2022-04-08 16:30] LABS: Estimated Glomerular Filt Rate 42
== END 2022-04-08 16:11 | disposition home or self-care (01) ==
LOC: ANHIMG 16:11
PROVIDERS: PCP Internal Medicine; Visit Provider Nurse Practitioner Adult Health
DX: N28.9 Disorder of kidney and ureter, unspecified (principal); K44.9 Diaphragmatic hernia without obstruction or gangrene; K40.90 Unilateral inguinal hernia, without obstruction or gangrene, not specified as recurrent
CPT/HCPCS: 74178; Q9967

== ENCOUNTER 2022-05-07 12:40 | Emergency (ER) | payer MEDICARE, SELFPAY ==
--- NOTE | ~2022-05-07 | CT_ITS ---
EXAMINATION: CT brain wo con DATE: 05/07/2022 13:12 INDICATION: Head trauma. Ground-level fall. Wound to central forehead. TECHNIQUE: Computed tomography (CT) of the head was performed without intravenous contrast. The mA wa s adjusted according to patient size. Iterative reconstruction technique was employed. Exam dose: 60 5.33 mGy-cm total exam DLP. COMPARISON: 10/06/2021 CT brain FINDINGS: Bilateral vertebral artery and prominent bilateral carotid siphon internal carotid artery c alcifications. There is nonspecific diminished attenuation of the cerebral white matter, likely due to chronic small vessel ischemic changes. There is moderate central and cortical cerebral and cerebellar atrophy. No intracranial mass lesion or hemorrhage or recent cerebrovascular accident is evident. Bilateral ch ronic lacunar infarcts of the thalami. No midline shift or mass effect effect. No subdural or epidural hematoma. Included paranasal sinuses and mastoid air cells are normally developed and aerated. No fracture or bone destruction of the cranial vault. IMPRESSION: Cerebral atherosclerosis and chronic small vessel ischemic changes of the cerebral white matter Chronic bilateral thalamic lacunar infarcts. Central and cortical cerebral and cerebellar atrophy No acute intracranial finding Reviewed, dictated and finalized at [facility]. 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
[2022-05-07 12:41] VITALS: BP 162/83; PULSE 69; RESP 16; TEMP 36.6; O2SAT 99
--- NOTE | 2022-05-07 13:30 | ED.FALL ---
HPI - Fall General Chief Complaint: Fall Stated Complaint: fall, head injury Time Seen by Provider: 05/07/22 12:47 History of Present Illness HPI Narrative: Patient is a 77-year-old male who presents to the ER status post trip and fall 1-1/2 hours prior to arrival. Reports there is a buckle on the driveway that he tripped over. He struck his right knee and his forehead on the ground. No loss consciousness. No change in vision or hearing. No nausea or vomiting. He is not on any blood thinners. Tetanus is up-to-date. Related Data Home Medications Medication Instructions Recorded Confirmed omeprazole 40 mg capsule,delayed 40 mg PO BID 10/06/21 04/28/22 release atorvastatin 40 mg tablet 40 mg PO DAILY 01/29/22 04/28/22 citalopram 20 mg tablet 20 mg PO DAILY 01/29/22 04/28/22 Allergies Allergy/AdvReac Type Severity Reaction Status Date / Time No Known Allergies Allergy Verified 05/07/22 12:44 Review of Systems Review of Systems: All systems reviewed & are unremarkable except as noted in HPI and below Eyes: Eyes: Denies change in vision and Denies photophobia Gastrointestinal: Gastrointestinal: Denies abdominal pain, Denies nausea and Denies vomiting Musculoskeletal: Musculoskeletal: Denies arthralgias and Denies joint swelling Integumentary/Breasts: Skin/Breast: Denies pruritus, Denies erythema and Denies rash Comments: Forehead and knee abrasion. Neurologic: Denies syncope, Denies headache(s), Denies numbness and Denies weakness PMFSH Past Medical History Medical History 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 Instead ERCP at that time demonstrate persistent presence of the mass. Jacobo's esophagus with high grade dysplasia With last EGD October 2020 demonstrating squamous mucosa chronic esophagitis with benign ulcer Benign essential hypertension Benign prostatic hyperplasia Chronic kidney disease, stage 3 Coronary artery disease DVT (deep venous thrombosis) April 2016 secondary to prolonged immobilization during complicated hospital course GERD (gastroesophageal reflux disease) Hearing loss Hx of iron deficiency Hyperlipidemia Iron deficiency anemia Large hiatal hernia Left upper quadrant abdominal pain of unknown etiology Obstructive sleep apnea STEMI (ST elevation myocardial infarction) (04/2015) 100% occlusion of distal LAD with unsuccessful balloon angioplasty with heavy thrombus burden and embolic event to the distal most part of the LAD treated medically Ureteral calculus, right (~10/2020) With cystoscopy, and laser lithotripsy Surgical History Surgical History (Updated 04/28/22 @ 11:38 by Shonda Chris [facility]) History of aortic valve replacement (~2009) 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 History of cardiac catheterization Hx of hernia repair left inguinal hernia S/p left hip fracture (04/2016) ORIF Family History Family History (Updated 04/13/22 @ 08:42 by Scot Burris MA) Mother CHF (congestive heart failure) Father Cerebrovascular accident Hypertension Social History Social History Social History: He lives in [place] with his of 51 years. He smoked 1/4 pack of cigarettes per day for approximately 10 years but quit smoking over 40 years ago. He drinks 1 beer every 2 weeks. 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 He has 3 children. He goes on walks 15-20 minutes today. Code status: Full code Surrogate decision maker: Primary care physician: Dr. Dina Mao Smoking packs per day: 0.25 Smoking cigarettes per day: 5.0 Y
[2022-05-07 13:51] VITALS: BP 132/78; PULSE 70; RESP 16; TEMP 36.8; O2SAT 98
== END 2022-05-07 13:52 | disposition home or self-care (01) ==
PROVIDERS: Emergency Provider Emergency Medicine; PCP Internal Medicine
DX: S00.81XA Abrasion of other part of head, initial encounter (principal); S80.211A Abrasion, right knee, initial encounter; I12.9 Hypertensive chronic kidney disease with stage 1 through stage 4 chronic kidney disease, or unspecified chronic kidney disease; N18.30 Chronic kidney disease, stage 3 unspecified; I25.10 Atherosclerotic heart disease of native coronary artery without angina pectoris; E78.5 Hyperlipidemia, unspecified; I25.2 Old myocardial infarction; N40.0 Benign prostatic hyperplasia without lower urinary tract symptoms; D50.9 Iron deficiency anemia, unspecified; K22.70 Barrett's esophagus without dysplasia; G47.33 Obstructive sleep apnea (adult) (pediatric); K21.9 Gastro-esophageal reflux disease without esophagitis; Z86.718 Personal history of other venous thrombosis and embolism; Z87.442 Personal history of urinary calculi; Z95.2 Presence of prosthetic heart valve; Z87.891 Personal history of nicotine dependence; W01.0XXA Fall on same level from slipping, tripping and stumbling without subsequent striking against object, initial encounter
CPT/HCPCS: 70450; 99284